=== PATIENT | female | born 1970 | race Caucasian/White ===

== ENCOUNTER 2017-06-13 13:48 | Outpatient (CLI) | payer MEDICAID, SELFPAY ==
[2017-06-13 15:24] LABS: PHA INR Fingerstick 2.5 (0.9-1.1)
== END 2017-06-13 15:47 | disposition home or self-care (01) ==
LOC: ACC 13:52
PROVIDERS: PCP Emergency Medicine; Visit Provider Emergency Medicine
DX: Z86.711 Personal history of pulmonary embolism (principal); D68.2 Hereditary deficiency of other clotting factors
CPT/HCPCS: 85610

== ENCOUNTER → 2017-07-11 11:53 | Outpatient (CLI) | payer MEDICAID, SELFPAY ==
[2017-07-11 12:16] LABS: Basophils # 0.1 K/mm3 (0-0.2); Eosinophils # 0.4 K/mm3 (0.0-0.4); Eosinophils % 5.9 % (0.1-12.0); Hematocrit 50.1 % (37.0-47.0); Hemoglobin 17.3 g/dL (12.2-16.2); Lymphocytes # 2.6 K/mm3 (0.7-4.5); Lymphocytes % 35.4 K/mm3 (10-50); Mean Corpuscular HGB Conc 34.5 g/dL (31.8-35.4); Mean Corpuscular Hemoglobin 29.1 pg (27.0-31.2); Mean Corpuscular Volume 84.4 fl (81-99); Mean Platelet Volume 7.1 fl (7.4-10.4); Monocytes # 0.4 K/mm3 (0.1-1.0); Neutrophils # 3.9 K/mm3 (1.8-7.8); Neutrophils % 52.7 % (37.0-80.0); Platelet Count 248 K/mm3 (142-424); Red Blood Count 5.94 M/mm3 (4.20-5.40); Red Cell Distribution Width 13.2 % (11.5-17.5); White Blood Count 7.4 K/mm3 (4.8-10.8)
[2017-07-11 12:31] LABS: Blood Urea Nitrogen 9 mg/dL (7-18); Carbon Dioxide 31 mmol/L (21.0-32.0); Chloride 102 mmol/L (98-107); Creatinine,Serum 0.86 mg/dL (0.55-1.02); Sodium 140 mmol/L (136-145)
[2017-07-11 12:32] LABS: Alanine Aminotransferase 32 U/L (12-78); Albumin Level 3.9 gm/dL (3.4-5.0); Alkaline Phosphatase 110 U/L (46-116); Bilirubin,Direct 0.1 mg/dL (0.0-0.2); Bilirubin,Total 0.3 mg/dL (0.2-1.0); Estimated Glomerular Filt Rate 71 ml/min (>60); GFR (African American) 86 ML/MIN (>60); Glucose 92 mg/dL (74-106); Total Protein,Serum 8.6 gm/dL (6.4-8.2)
[2017-07-11 12:33] LABS: Aspartate Amino Transferase 23 U/L (15-37)
[2017-07-12 08:24] LABS: Hep A Ab, IgM Negative (Negative); Hepatitis B Core Antibody IgM Negative (Negative); Hepatitis B Surface Antigen Negative (Negative)
[2017-07-13 06:29] LABS: HIV Screen 4th Generation wRfx Non Reactive (Non Reactive); Hepatitis C Antibody >11.0 s/co ratio (0.0-0.9)
== END ==
PROVIDERS: PCP Emergency Medicine; Visit Provider Anesthesiology
DX: F11.20 Opioid dependence, uncomplicated (principal)
CPT/HCPCS: 36415; 80048; 80074; 80076; 85025; 86703; G0432

== ENCOUNTER → 2017-08-13 14:40 | Outpatient (CLI) | payer MEDICAID, SELFPAY ==
[2017-08-13 16:29] LABS: PHA INR Fingerstick 1.9 (0.9-1.1)
== END | disposition home or self-care (01) ==
PROVIDERS: Family Provider Emergency Medicine; PCP Emergency Medicine; Visit Provider Emergency Medicine
DX: Z79.01 Long term (current) use of anticoagulants (principal); Z51.81 Encounter for therapeutic drug level monitoring
CPT/HCPCS: 85610; 99211; G0463

== ENCOUNTER → 2017-08-20 13:21 | Outpatient (CLI) | payer MEDICAID, SELFPAY | PROVIDERS: Visit Provider Emergency Medicine | DX: R53.83 Other fatigue (principal) ==

== ENCOUNTER → 2017-09-27 08:23 | Outpatient (CLI) | payer MEDICAID, SELFPAY ==
--- NOTE | 2017-09-27 08:24 | US_ITS ---
US abdomen limited: HISTORY: Right upper quadrant pain and reflux ITS.REASON: Stomach pain ORDERING PHYSICIAN: Kang Oliver MD PATIENT AGE: 46 years COMPARISON: FINDINGS: PANCREAS: Unremarkable. No obvious mass or abnormal fluid collection. No ductal dilatation LIVER: No focal liver lesions demonstrated. Homogeneous echogenicity. No intrahepatic biliary ductal dilatation evident RIGHT KIDNEY: Unremarkable. Normal size and echogenicity. No hydronephrosis GALLBLADDER: No gallstones, gallbladder wall thickening, pericholecystic fluid, or biliary dilatation. IMPRESSION: Negative gallbladder/right upper quadrant ultrasound
== END ==
PROVIDERS: Family Provider Emergency Medicine; PCP Emergency Medicine; Visit Provider Emergency Medicine
DX: R10.11 Right upper quadrant pain (principal)
CPT/HCPCS: 76705

== ENCOUNTER → 2017-11-14 15:13 | Outpatient (REF) | payer MEDICAID, SELFPAY ==
[2017-11-14 18:56] LABS: Amphetamine/Metha Screen,Urine Negative ng/mL (<1000); Barbiturates Screen,Urine Negative ng/mL (<200); Benzodiazepines Screen,Urine Negative ng/mL (200); Cannabinoid Screen,Urine Negative ng/mL (<50); Cocaine Screen,Urine Negative ng/g (<300); Methadone Screen,Urine Negative ng/mL (<300); Opiate Screen,Urine Negative ng/mL (<300); Phencyclidine Screen,Urine Negative ng/mL (<25)
== END ==
LOC: LAB 15:13
PROVIDERS: Visit Provider Emergency Medicine
DX: Z79.899 Other long term (current) drug therapy (principal)
CPT/HCPCS: 80305

== ENCOUNTER → 2017-11-26 17:32 | Outpatient (CLI) | payer MEDICAID, SELFPAY ==
[2017-11-26 18:03] LABS: Basophils # 0.1 K/mm3 (0-0.2); Eosinophils # 0.3 K/mm3 (0.0-0.4); Eosinophils % 4.3 % (0.1-12.0); Hematocrit 51.6 % (37.0-47.0); Hemoglobin 16.7 g/dL (12.2-16.2); Lymphocytes # 2.8 K/mm3 (0.7-4.5); Lymphocytes % 35.3 K/mm3 (10-50); Mean Corpuscular HGB Conc 32.5 g/dL (31.8-35.4); Mean Corpuscular Hemoglobin 28.5 pg (27.0-31.2); Mean Corpuscular Volume 87.7 fl (81-99); Mean Platelet Volume 7.2 fl (7.4-10.4); Monocytes # 0.4 K/mm3 (0.1-1.0); Monocytes % 4.7 % (1.7-9.3); Neutrophils # 4.3 K/mm3 (1.8-7.8); Neutrophils % 54.8 % (37.0-80.0); Platelet Count 260 K/mm3 (142-424); Red Blood Count 5.88 M/mm3 (4.20-5.40); Red Cell Distribution Width 13.4 % (11.5-17.5); White Blood Count 7.9 K/mm3 (4.8-10.8)
[2017-11-26 18:48] LABS: Alanine Aminotransferase 26 U/L (12-78); Albumin Level 4.1 gm/dL (3.4-5.0); Alkaline Phosphatase 89 U/L (46-116); Aspartate Amino Transferase 22 U/L (15-37); Bilirubin,Direct 0.1 mg/dL (0.0-0.2); Bilirubin,Indirect 0.1 mg/dL (0.0-0.9); Bilirubin,Total 0.2 mg/dL (0.2-1.0); Blood Urea Nitrogen 17 mg/dL (7-18); Calcium 9.2 mg/dL (8.5-10.1); Carbon Dioxide 28 mmol/L (21.0-32.0); Chloride 106 mmol/L (98-107); Creatinine,Serum 1.03 mg/dL (0.55-1.02); Estimated Glomerular Filt Rate 57 ml/min (>60); GFR (African American) 69 ML/MIN (>60); Glucose 108 mg/dL (74-106); Sodium 142 mmol/L (136-145); Total Protein,Serum 7.7 gm/dL (6.4-8.2)
[2017-11-28 09:20] LABS: Hep A Ab, IgM Negative (Negative); Hepatitis B Core Antibody IgM Negative (Negative); Hepatitis B Surface Antigen Negative (Negative)
[2017-11-29 06:03] LABS: HIV Screen 4th Generation wRfx Non Reactive (Non Reactive); Hepatitis C Antibody >11.0 s/co ratio (0.0-0.9)
== END ==
PROVIDERS: Visit Provider Anesthesiology
DX: F11.20 Opioid dependence, uncomplicated (principal)
CPT/HCPCS: 36415; 80048; 80074; 80076; 85025; 86703; G0432

== ENCOUNTER 2017-12-11 13:43 | Outpatient (CLI) | payer MEDICAID, SELFPAY ==
[2017-12-11 16:25] LABS: PHA INR Fingerstick 2.4 (0.9-1.1)
== END 2017-12-11 16:27 | disposition home or self-care (01) ==
LOC: ACC 13:44
PROVIDERS: PCP Emergency Medicine; Visit Provider Emergency Medicine
DX: Z79.01 Long term (current) use of anticoagulants (principal); Z86.718 Personal history of other venous thrombosis and embolism; Z51.81 Encounter for therapeutic drug level monitoring
CPT/HCPCS: 85610; 99211; G0463

== ENCOUNTER 2018-03-13 14:39 | Outpatient (CLI) | payer MEDICAID, SELFPAY | END 2018-03-13 15:11 | disposition home or self-care (01) | LOC: ACC 14:40 | PROVIDERS: PCP Emergency Medicine; Visit Provider Surgery | DX: K21.9 Gastro-esophageal reflux disease without esophagitis (principal); R10.9 Unspecified abdominal pain; Z86.718 Personal history of other venous thrombosis and embolism | CPT/HCPCS: 85610; 99211; G0463 ==

== ENCOUNTER 2018-03-22 08:56 | Outpatient (CLI) | payer MEDICAID, SELFPAY ==
[2018-03-22 15:55] LABS: PHA INR Fingerstick 2.9 (0.9-1.1)
== END 2018-03-22 15:56 | disposition home or self-care (01) ==
LOC: ACC 08:57
PROVIDERS: PCP Emergency Medicine; Visit Provider Emergency Medicine
DX: Z51.81 Encounter for therapeutic drug level monitoring (principal); Z79.01 Long term (current) use of anticoagulants
CPT/HCPCS: 85610; 99211; G0463

== ENCOUNTER 2018-05-28 15:50 | Outpatient (CLI) | payer MEDICAID, SELFPAY ==
[2018-05-28 16:26] LABS: PHA INR Fingerstick 2.6 (0.9-1.1)
== END 2018-05-28 16:32 | disposition home or self-care (01) ==
LOC: ACC 15:52
PROVIDERS: PCP Emergency Medicine; Visit Provider Emergency Medicine
DX: Z51.81 Encounter for therapeutic drug level monitoring (principal); Z79.01 Long term (current) use of anticoagulants
CPT/HCPCS: 85610; 99211; G0463

== ENCOUNTER 2018-08-21 14:44 | Outpatient (CLI) | payer MEDICAID, SELFPAY ==
[2018-08-21 15:37] LABS: PHA INR Fingerstick 2.6 (0.9-1.1)
== END 2018-08-21 15:50 | disposition home or self-care (01) ==
LOC: ACC 14:45
PROVIDERS: PCP Emergency Medicine; Visit Provider Emergency Medicine
DX: Z51.81 Encounter for therapeutic drug level monitoring (principal); Z79.01 Long term (current) use of anticoagulants; Z86.718 Personal history of other venous thrombosis and embolism
CPT/HCPCS: 85610; 99211; G0463

== ENCOUNTER 2018-09-19 22:49 | Emergency (ER) | payer MEDICAID, SELFPAY ==
[2018-09-19 22:51] VITALS: BP 101/45; PULSE 75; RESP 17; TEMP 37.1; O2SAT 98; BMI 24.9
[2018-09-20 00:12] LABS: Basophils # 0.1 K/mm3 (0-0.2); Basophils % 0.5 % (0.1-2.0); Eosinophils # 0.1 K/mm3 (0.0-0.4); Eosinophils % 1.4 % (0.1-12.0); Hematocrit 45.7 % (37.0-47.0); Hemoglobin 15.4 g/dL (12.2-16.2); Lymphocytes % 33.1 % (10-50); Mean Corpuscular HGB Conc 33.8 g/dL (31.8-35.4); Mean Corpuscular Hemoglobin 28.3 pg (27.0-31.2); Mean Corpuscular Volume 83.8 fl (81-99); Mean Platelet Volume 7.5 fl (7.4-10.4); Monocytes # 0.5 K/mm3 (0.1-1.0); Monocytes % 5.4 % (1.7-9.3); Neutrophils # 5.3 K/mm3 (1.8-7.8); Neutrophils % 59.6 % (37.0-80.0); Platelet Count 218 K/mm3 (142-424); Red Blood Count 5.45 M/mm3 (4.20-5.40); Red Cell Distribution Width 13.9 % (11.5-17.5); White Blood Count 8.9 K/mm3 (4.8-10.8)
[2018-09-20 00:23] LABS: Anion Gap 13.5 mEq/L (5-15); Blood Urea Nitrogen 16 mg/dL (7-18); Carbon Dioxide 27 mmol/L (21.0-32.0); Chloride 103 mmol/L (98-107); Creatinine Clearance Estimated 78 mL/min (50-200); Creatinine,Serum 1.21 mg/dL (0.55-1.02); Estimated Glomerular Filt Rate 48 ml/min (>60); GFR (African American) 58 ML/MIN (>60); Glucose 95 mg/dL (74-106); Potassium 3.5 mmoL/L (3.5-5.1); Sodium 140 mmol/L (136-145); Troponin I < 0.02 ng/ml (0.00-0.06)
--- NOTE | 2018-09-20 00:23 | HMH.EDCP ---
ED Disposition Clinical Impression: Atypical chest pain Disposition: Home, Self-Care Condition on Discharge: Good Instructions: DI for Atypical Chest Pain Additional Instructions: fluids and see pcp for follow up Referrals: Kang Oliver MD [Primary Care Provider] - - Critical Care Critical Care Time: No Attestation: On 09/19/18, the high probability of a clinically significant, sudden or life threatening deterioration of the following system(s) required my full and direct attention, intervention and personal management. The time I documented below is in addition to time spent performing reported procedures but includes the following listed in this critical care notation. Medical Decision Making - Medical Records Medical records reviewed: Yes: I reviewed the patient's medical records. - Fermín Inquiry Pt receiving controlled substance: No Vital Signs: 09/19/18 22:51 Temperature 98.8 F Temperature Source Oral Pulse Rate [Right] 75 Respiratory Rate 17 Blood Pressure [Left Arm] 101/45 L Blood Pressure Mean [Left Arm] 63 Blood Pressure Source [Left Arm] Automatic Cuff Blood Pressure Position [Left Arm] Sitting 02 Sat by Pulse Oximetry 98 - Lab Data Lab results reviewed: Yes: I reviewed the patient's lab results. Lab Results 09/20/18 00:00: WBC 8.9, RBC 5.45 H, Hgb 15.4, Hct 45.7, MCV 83.8, MCH 28.3, MCHC 33.8, RDW 13.9, Plt Count 218, MPV 7.5, Neut % (Auto) 59.6, Lymph % (Auto) 33.1, [place] % (Auto) 5.4, Eos % (Auto) 1.4, Baso % (Auto) 0.5, Neut # (Auto) 5.3, Lymph # (Auto) 3.0, [place] # (Auto) 0.5, Eos # (Auto) 0.1, Baso # (Auto) 0.1 09/20/18 00:00: Sodium 140, Potassium 3.5, Chloride 103, Carbon Dioxide 27, Anion Gap 13.5, BUN 16, Creatinine 1.21 H, Estimated Creat Clear 78, Estimated GFR 48 L, Est GFR ( Amer) 58 L, Glucose 95, Calcium 9.0, Troponin I < 0.02 Result diagrams: 09/20/18 00:00 09/20/18 00:00 - ECG Data Tracing #1 Normal Sinus Rhythm: Yes Ischemic changes: non-specific ST-T wave changes Chest Pain HPI - General Chief Complaint: Chest Pain Stated Complaint: Chest pain radiates to left arm Time Seen by Provider: 09/19/18 23:00 Mode of Arrival: Ambulatory Source of Information: Patient, Medical Record Limitations: No Limitations Description of Symptoms (Recalled from ER Triage Doc. by RN): Chest pain radiating into left shoulder. - History of Present Illness HPI narrative: pt with occ ant chest pain with no fever or trauma and no cough MD complaint: chest pain Onset (ago): day(s) Duration: now resolved Activity at onset: during rest Pain location: left chest Severity: moderate Quality: sharp Risk Factors for CAD: Smoking Treatments prior to or on arrival for Cardiac Chest Pain: none - KYLEE Score for Non-Stemi Age of Patient: 40-49 years old Heart Rate: 70-89 bpm Systolic Blood Pressure: 100-119 mmHg Serum Creatinine: 1.20-1.59 mg/dl CHF [place] Class: I-No CHF Other Risk Factors: None Non-Stemi Risk Score: 87 - Related Data On Oral Contraceptives: No Home Medications Medication Instructions Recorded Confirmed Umeclidinium Brm/Vilanterol Tr 62.5 mcg INHALATION Q24H 07/21/18 09/20/18 [Anoro Ellipta] Umeclidinium [place] [Incruse 62.5 mcg INHALATION Q24H 08/22/18 09/20/18 Ellipta] Albuterol Sulfate [Proventil HFA] 90 mcg INHALATION Q8H PRN 09/19/18 09/19/18 Suboxone 8 mg-2 mg Sl Film 8 mg PO BID 09/19/18 09/19/18 Fluticasone Propionate [Flonase 50 mcg INTRANASAL DAILY 09/20/18 09/20/18 Allergy Relief NS] Fluticasone/Vilanterol [Breo 25 mcg INHALATION DAILY 09/20/18 09/20/18 Ellipta 200-25 Mcg INH] Previous Rx's Medication Instructions Recorded tizanidine 4 mg tablet 4 mg PO TID PRN #90 tab 07/31/18 pantoprazole 40 mg tablet,delayed 40 mg PO DAILY #90 tab 08/26/18 release ranitidine 150 mg tablet 150 mg PO BID #180 tab 08/26/18 warfarin 5 mg tablet 5 mg PO DAILY #90 tab 08/26/18 gabapentin 800 mg tablet 800 mg PO QID #120 tab
--- NOTE | 2018-09-20 00:35 | ED_ITS ---
ED Disposition Clinical Impression: Atypical chest pain Disposition: Home, Self-Care Condition on Discharge: Good Instructions: DI for Atypical Chest Pain Additional Instructions: fluids and see pcp for follow up Referrals: Kang Oliver MD [Primary Care Provider] - - Critical Care Critical Care Time: No Attestation: On 09/19/18, the high probability of a clinically significant, sudden or life threatening deterioration of the following system(s) required my full and direct attention, intervention and personal management. The time I documented below is in addition to time spent performing reported procedures but includes the following listed in this critical care notation. Medical Decision Making - Medical Records Medical records reviewed: Yes: I reviewed the patient's medical records. - Fermín Inquiry Pt receiving controlled substance: No Vital Signs: 09/19/18 22:51 Temperature 98.8 F Temperature Source Oral Pulse Rate [Right] 75 Respiratory Rate 17 Blood Pressure [Left Arm] 101/45 L Blood Pressure Mean [Left Arm] 63 Blood Pressure Source [Left Arm] Automatic Cuff Blood Pressure Position [Left Arm] Sitting 02 Sat by Pulse Oximetry 98 - Lab Data Lab results reviewed: Yes: I reviewed the patient's lab results. Lab Results 09/20/18 00:00: WBC 8.9, RBC 5.45 H, Hgb 15.4, Hct 45.7, MCV 83.8, MCH 28.3, MCHC 33.8, RDW 13.9, Plt Count 218, MPV 7.5, Neut % (Auto) 59.6, Lymph % (Auto) 33.1, [place] % (Auto) 5.4, Eos % (Auto) 1.4, Baso % (Auto) 0.5, Neut # (Auto) 5.3, Lymph # (Auto) 3.0, [place] # (Auto) 0.5, Eos # (Auto) 0.1, Baso # (Auto) 0.1 09/20/18 00:00: Sodium 140, Potassium 3.5, Chloride 103, Carbon Dioxide 27, Anion Gap 13.5, BUN 16, Creatinine 1.21 H, Estimated Creat Clear 78, Estimated GFR 48 L, Est GFR ( Amer) 58 L, Glucose 95, Calcium 9.0, Troponin I < 0.02 Result diagrams: 09/20/18 00:00 09/20/18 00:00 - ECG Data Tracing #1 Normal Sinus Rhythm: Yes Ischemic changes: non-specific ST-T wave changes Chest Pain HPI - General Chief Complaint: Chest Pain Stated Complaint: Chest pain radiates to left arm Time Seen by Provider: 09/19/18 23:00 Mode of Arrival: Ambulatory Source of Information: Patient, Medical Record Limitations: No Limitations Description of Symptoms (Recalled from ER Triage Doc. by RN): Chest pain radiating into left shoulder. - History of Present Illness HPI narrative: pt with occ ant chest pain with no fever or trauma and no cough MD complaint: chest pain Onset (ago): day(s) Duration: now resolved Activity at onset: during rest Pain location: left chest Severity: moderate Quality: sharp Risk Factors for CAD: Smoking Treatments prior to or on arrival for Cardiac Chest Pain: none - KYLEE Score for Non-Stemi Age of Patient: 40-49 years old Heart Rate: 70-89 bpm Systolic Blood Pressure: 100-119 mmHg Serum Creatinine: 1.20-1.59 mg/dl CHF [place] Class: I-No CHF Other Risk Factors: None Non-Stemi Risk Score: 87 - Related Data On Oral Contraceptives: No Home Medications Medication Instructions Recorded Confirmed Umeclidinium Brm/Vilanterol Tr 62.5 mcg INHALATION Q24H 07/21/18 09/20/18 [Anoro Ellipta] Umeclidinium [place] [Incrus
[2018-09-20 00:58] VITALS: BP 131/93; PULSE 74; RESP 16; TEMP 36.6; O2SAT 98
== END 2018-09-20 00:57 | disposition home or self-care (01) ==
PROVIDERS: Emergency Provider Emergency Medicine; PCP Emergency Medicine
DX: R07.89 Other chest pain (principal); F41.8 Other specified anxiety disorders; K21.9 Gastro-esophageal reflux disease without esophagitis; F17.210 Nicotine dependence, cigarettes, uncomplicated; Z88.0 Allergy status to penicillin; Z88.6 Allergy status to analgesic agent
CPT/HCPCS: 80048; 84484; 85025; 93005; 99282

== ENCOUNTER 2018-09-25 15:07 | Outpatient (CLI) | payer MEDICAID, SELFPAY ==
--- NOTE | 2018-09-25 15:08 | NVE_ITS ---
Cerebrovascular Exam Indications: 729.5 Pain in limb. IMPRESSIONS 1. There is no evidence of significant Reflux. 2. No evidence of acute deep or superficial vein thrombosis involving the left lower extremity History: PMH: Deep vein thrombosis. Risk factors: Current tobacco use. Medications: Warfarin (Coumadin). Limited carotid duplex study. Doppler flow study including spectral analysis, color and coleman scale imaging. Location: Vascular laboratory. Patient status: Outpatient. Tables: Venous flow and imaging: + +-------+ + Location Overall Flow properties + +-------+ + Left common femoral Patent Normal phasicity; spontaneous; normal augmentation; compressible + +-------+ + Left saphenofemoral junction Patent Compressible + +-------+ + Left profunda femoral Patent Compressible + +-------+ + Left femoral Patent Normal phasicity; spontaneous; normal augmentation; compressible + +-------+ + Left greater saphenous Patent Normal phasicity; spontaneous; normal augmentation; compressible + +-------+ + Left popliteal Patent Normal phasicity; spontaneous; normal augmentation; compressible + +-------+ + Left posterior tibial Patent Compressible + +-------+ + Left peroneal Patent Compressible + +-------+ + Left gastrocnemius Patent Compressible + +-------+ + Left soleal Patent Compressible + +-------+ + (Report amended ) Electronically signed by: Balta Chapin [id number]
[2018-09-25 16:09] LABS: PHA INR Fingerstick 2.4 (0.9-1.1)
== END 2018-09-25 16:11 | disposition home or self-care (01) ==
PROVIDERS: PCP Nurse Practitioner Family; Visit Provider Nurse Practitioner Family
DX: R60.9 Edema, unspecified (principal); Z51.81 Encounter for therapeutic drug level monitoring; Z79.01 Long term (current) use of anticoagulants
CPT/HCPCS: 85610; 93971; 99211; G0463

== ENCOUNTER → 2018-10-04 14:22 | Outpatient (CLI) | payer MEDICAID, SELFPAY ==
--- NOTE | 2018-10-04 14:24 | CT_ITS ---
CT abdomen pelvis wo con CLINICAL INDICATION: Right flank pain with hematuria ITS.REASON: blood in urine ORDERING PHYSICIAN: Donya Mendoza APRN PATIENT AGE: 47 years COMPARISON: 07/28/2018 TECHNIQUE: Axial images obtained with sagittal and coronal reformats. All CT scans at the facility use one or more dose reduction, viz: automated exposure control, ma/kV adjustment per patient size (including targeted exams where dose is matched to indication, i.e. head), or iterative reconstruction technique. PROCEDURE: Oral Contrast: None IV Contrast: None . FINDINGS: There are fibrotic changes in the lung bases. There is diffuse fatty infiltration of the liver with some sparing of fatty infiltration within the left hepatic lobe posteriorly in the caudate area. The spleen, adrenal glands, pancreas, gallbladder, and kidneys have an unremarkable appearance. No renal or ureteral calculi. No process. No intestinal obstruction or free air. Bowel gas pattern is nonspecific with some fluid-filled small bowel which are nondistended. Prior hysterectomy. No pelvic mass abnormal fluid collection or focal inflammatory changes pelvis. The urinary bladder has an unremarkable appearance No acute bony anomalies. IMPRESSION: 1. No acute abdominal or pelvic findings. 2. No renal or ureteral calculi. 3. Diffuse fatty infiltration of liver with sparing of the posterior aspect of the left hepatic lobe and caudate lobe
== END ==
PROVIDERS: PCP Emergency Medicine; Visit Provider Nurse Practitioner Family
DX: R31.9 Hematuria, unspecified (principal)
CPT/HCPCS: 74176

== ENCOUNTER 2018-10-15 15:11 | Outpatient (CLI) | payer MEDICAID, SELFPAY ==
[2018-10-15 15:59] LABS: PHA INR Fingerstick 2.9 (0.9-1.1)
== END 2018-10-15 16:01 | disposition home or self-care (01) ==
LOC: ACC 15:15
PROVIDERS: PCP Emergency Medicine; Visit Provider Emergency Medicine
DX: Z51.81 Encounter for therapeutic drug level monitoring (principal); Z79.01 Long term (current) use of anticoagulants; Z86.718 Personal history of other venous thrombosis and embolism
CPT/HCPCS: 85610; 99211; G0463

== ENCOUNTER 2018-11-15 13:47 | Outpatient (CLI) | payer MEDICAID, SELFPAY ==
[2018-11-15 15:17] LABS: PHA INR Fingerstick 2.1 (0.9-1.1)
== END 2018-11-15 16:07 | disposition home or self-care (01) ==
LOC: ACC 13:49
PROVIDERS: PCP Emergency Medicine; Visit Provider Emergency Medicine
DX: Z51.81 Encounter for therapeutic drug level monitoring (principal); Z79.01 Long term (current) use of anticoagulants; Z86.718 Personal history of other venous thrombosis and embolism
CPT/HCPCS: 85610; 99211; G0463

== ENCOUNTER → 2018-12-11 18:00 | Outpatient (CLI) | payer MEDICAID, SELFPAY ==
[2018-12-11 19:17] LABS: Amphetamine/Metha Screen,Urine Negative ng/mL (<1000); Barbiturates Screen,Urine Negative ng/mL (<200); Benzodiazepines Screen,Urine Negative ng/mL (<200); Cannabinoid Screen,Urine Positive ng/mL (<50); Cocaine Screen,Urine Negative ng/mL (<300); Methadone Screen,Urine Negative ng/mL (<300); Opiate Screen,Urine Negative ng/mL (<300); Phencyclidine Screen,Urine Negative ng/mL (<25)
== END ==
PROVIDERS: Visit Provider Emergency Medicine
DX: Z79.899 Other long term (current) drug therapy (principal); R74.8 Abnormal levels of other serum enzymes
CPT/HCPCS: 80305; 87086; 87088; 87186

== ENCOUNTER 2018-12-26 09:44 | Outpatient (CLI) | payer MEDICAID, SELFPAY ==
[2018-12-26 11:29] LABS: PHA INR Fingerstick 1.7 (0.9-1.1)
== END 2018-12-26 11:38 | disposition home or self-care (01) ==
LOC: ACC 09:45
PROVIDERS: PCP Emergency Medicine; Visit Provider Emergency Medicine
DX: Z51.81 Encounter for therapeutic drug level monitoring (principal); Z79.01 Long term (current) use of anticoagulants
CPT/HCPCS: 85610; 99211; G0463

== ENCOUNTER → 2019-01-08 18:31 | Outpatient (CLI) | payer MEDICAID, SELFPAY ==
[2019-01-08 22:15] LABS: Amphetamine/Metha Screen,Urine Negative ng/mL (<1000); Barbiturates Screen,Urine Negative ng/mL (<200); Benzodiazepines Screen,Urine Negative ng/mL (<200); Cannabinoid Screen,Urine Positive ng/mL (<50); Cocaine Screen,Urine Negative ng/mL (<300); Methadone Screen,Urine Negative ng/mL (<300); Opiate Screen,Urine Negative ng/mL (<300); Phencyclidine Screen,Urine Negative ng/mL (<25)
== END ==
PROVIDERS: Visit Provider Emergency Medicine
DX: G62.9 Polyneuropathy, unspecified (principal)
CPT/HCPCS: 80305

== ENCOUNTER 2019-01-09 12:24 | Outpatient (CLI) | payer MEDICAID, SELFPAY ==
[2019-01-09 14:14] LABS: PHA INR Fingerstick 1.8 (0.9-1.1)
== END 2019-01-09 14:16 | disposition home or self-care (01) ==
LOC: ACC 12:25
PROVIDERS: PCP Emergency Medicine; Visit Provider Emergency Medicine
DX: Z51.81 Encounter for therapeutic drug level monitoring (principal); Z79.01 Long term (current) use of anticoagulants; Z86.718 Personal history of other venous thrombosis and embolism
CPT/HCPCS: 85610; 99211; G0463

== ENCOUNTER 2019-02-24 16:01 | Outpatient (CLI) | payer MEDICAID, SELFPAY ==
[2019-02-24 16:31] LABS: PHA INR Fingerstick 2.1 (0.9-1.1)
--- NOTE | 2019-03-06 13:52 | HMH.PHAINT ---
ACC-03/06/19--PATIENT CALLED AND INDICATED SHE DID NOT GO TO HER COLONOSCOPY APPT YESTERDAY BECAUSE HER RIDE FELL THROUGH. SHE INDICATED SHE DID NOT TAKE WARFARIN OR LOVENOX YESTERDAY. SHE INDICATED SHE HAD TAKEN ONE DOSE OF WARFARIN TODAY BECAUSE SHE WAS AFRAID SHE WOULD HAVE A CLOT. I CALLED DR. GILBERT'S OFFICE AND SPOKE WITH SUSIE ABOUT ORDERING ADDITIONAL LOVENOX TO BRIDGE HER UNTIL THE RESCHEDULED COLONOSCOPY ON 03/10/19.
== END 2019-02-24 16:33 | disposition home or self-care (01) ==
LOC: ACC 16:02
PROVIDERS: PCP Emergency Medicine; Visit Provider Emergency Medicine
DX: Z51.81 Encounter for therapeutic drug level monitoring (principal); Z79.01 Long term (current) use of anticoagulants
CPT/HCPCS: 85610; 99211; G0463

== ENCOUNTER → 2019-04-08 16:53 | Outpatient (CLI) | payer OTHER, SELFPAY ==
[2019-04-08 17:59] LABS: Amphetamine/Metha Screen,Urine Negative ng/mL (<1000); Barbiturates Screen,Urine Negative ng/mL (<200); Benzodiazepines Screen,Urine Negative ng/mL (<200); Cannabinoid Screen,Urine Negative ng/mL (<50); Cocaine Screen,Urine Negative ng/mL (<300); Methadone Screen,Urine Negative ng/mL (<300); Opiate Screen,Urine Negative ng/mL (<300); Phencyclidine Screen,Urine Negative ng/mL (<25)
== END ==
PROVIDERS: Visit Provider Emergency Medicine
DX: Z79.899 Other long term (current) drug therapy (principal)
CPT/HCPCS: 80305

== ENCOUNTER 2019-04-21 14:36 | Outpatient (CLI) | payer OTHER, SELFPAY ==
[2019-04-21 15:23] LABS: PHA INR Fingerstick 3.1 (0.9-1.1)
== END 2019-04-21 15:43 | disposition home or self-care (01) ==
LOC: ACC 14:37
PROVIDERS: PCP Emergency Medicine; Visit Provider Emergency Medicine
DX: Z51.81 Encounter for therapeutic drug level monitoring (principal); Z79.01 Long term (current) use of anticoagulants
CPT/HCPCS: 85610; 99211; G0463

== ENCOUNTER 2019-05-01 15:39 | Outpatient (CLI) | payer OTHER, SELFPAY ==
[2019-05-01 16:21] LABS: PHA INR Fingerstick 2.3 (0.9-1.1)
== END 2019-05-01 16:25 | disposition home or self-care (01) ==
PROVIDERS: PCP Emergency Medicine; Visit Provider Emergency Medicine
DX: Z51.81 Encounter for therapeutic drug level monitoring (principal); Z79.01 Long term (current) use of anticoagulants
CPT/HCPCS: 85610; 99211; G0463

== ENCOUNTER → 2019-05-06 08:52 | Outpatient (CLI) | payer OTHER, SELFPAY ==
--- NOTE | 2019-05-06 08:53 | FL_ITS ---
PROCEDURE: FL UPPER GI SMALL BOWEL CLINICAL INDICATION: dysphagia and abdominal pain COMPARISON: FL BARIUM SWALLOW from 05/06/2019 TECHNIQUE: FLUOROSCOPY TIME : 1 minutes and 46 seconds FINDINGS: Examination of the esophagus is unremarkable. No filling defects, constricting lesions, or mucosal abnormalities are evident. The stomach and duodenum have an unremarkable appearance. No mass or ulcer evident. Small bowel is unremarkable with normal mucosal pattern. No obstructive lesions or dilatation. Spot views of the terminal ileum are unremarkable. IMPRESSION: Unremarkable barium swallow, upper GI, and small-bowel follow-through Dictated by: Balta Chapin MD 05/06/2019 12:28 Electronically signed by Balta Chapin MD in [place] 05/06/2019 12:28
== END ==
PROVIDERS: PCP Emergency Medicine; Visit Provider Surgery
DX: R13.10 Dysphagia, unspecified (principal)
CPT/HCPCS: 74220; 74245

== ENCOUNTER 2019-05-15 09:49 | Outpatient (CLI) | payer OTHER, SELFPAY ==
--- NOTE | 2019-05-15 10:22 | XR_ITS ---
PROCEDURE: XR KNEE LT 4V CLINICAL INDICATION: left knee sprain/ pain COMPARISON: XR KNEE LT 3V from 04/11/2019 FINDINGS: No fracture or dislocation. No lytic or blastic change. There is normal mineralization. The joint spaces are well-preserved. No significant degenerative/arthritic changes. No erosive changes evident. Other findings:There are stable linear sclerotic lines related to the medullary portion of the distal shaft and metaphysis of the femur. These could be related to chronic occult injuries or metabolic. IMPRESSION: No acute process and no significant change. Dictated by: Enoc Grullon 05/15/2019 10:51 Electronically signed by Enoc Grullon in [place] 05/15/2019 10:51
--- NOTE | 2019-05-15 10:22 | XR_ITS ---
PROCEDURE: XR ANKLE LT MIN 3V CLINICAL INDICATION: pain COMPARISON: No exams were available for comparison FINDINGS: Bone density is normal. There is orthopedic hardware with fixation screws and compression plates involving distal tibia and fibula. There are small rounded lucent foci involving the distal metaphysis of the tibia with adjacent sclerosis likely related to prior orthopedic hardware. There is no acute fracture. There is some flattening of the dome of the talus and there narrowing of the tibiotalar joint with anterior spur. IMPRESSION: Postoperative findings as described. Tibiotalar joint arthritis. Dictated by: Enoc Grullon 05/15/2019 10:48 Electronically signed by Enoc Grullon in [place] 05/15/2019 10:48
[2019-05-15 12:13] LABS: PHA INR Fingerstick 2.1 (0.9-1.1)
== END 2019-05-15 12:25 | disposition home or self-care (01) ==
PROVIDERS: PCP Emergency Medicine; Referring Provider Orthopaedic Surgery; Visit Provider Emergency Medicine
DX: M79.605 Pain in left leg (principal); M25.562 Pain in left knee; Z51.81 Encounter for therapeutic drug level monitoring; Z79.01 Long term (current) use of anticoagulants
CPT/HCPCS: 73564; 73610; 85610; 99211; G0463

== ENCOUNTER 2019-05-15 11:07 | Emergency (ER) | payer OTHER, SELFPAY ==
--- NOTE | 2019-05-15 11:07 | ECG_ITS ---
APPROVED REPORT Exam: Resting ECG HR:69 bpm ECG Measurements Heart Rate 69 AXES NC 108 P 66 QRSd 82 QRS 48 QT 382 T 52 QTc 409 <Conclusion> Sinus rhythm with short NC Otherwise normal ECG Electronically signed by : Isac Pate, 05/18/2019 14:32:45
[2019-05-15 11:09] VITALS: BP 130/81; PULSE 75; RESP 18; TEMP 36.7; O2SAT 97; BMI 24.5
--- NOTE | 2019-05-15 11:19 | XR_ITS ---
PROCEDURE: XR CHEST 2V CLINICAL HISTORY: CP COMPARISON: CTAC CTA-CHEST from 08/06/2013 CXR2V XR chest 2V from 08/22/2018 XR CHEST 2V from 01/29/2019 XR CHEST 2V from 04/16/2019 FINDINGS: The cardiomediastinal silhouette and pulmonary vascularity are within normal limits. There are a few hazy strands of increased density along the lateral right lung base just above the right lateral costophrenic angle. This was also present on the 08/22/2018 exam. There are some punctate stable benign calcified granulomas in the lung salas bilaterally. No acute bony abnormalities. IMPRESSION: Lateral right lung base scarring and perhaps some mild pleural thickening. No significant change or acute process. Dictated by: Enoc Grullon 05/15/2019 12:35 Electronically signed by Enoc Grullon in [place] 05/15/2019 12:35
[2019-05-15 11:25] LABS: Basophils # 0.1 K/mm3 (0-0.2); Basophils % 0.9 % (0.1-2.0); Eosinophils # 0.1 K/mm3 (0.0-0.4); Eosinophils % 2.4 % (0.1-12.0); Hematocrit 46.6 % (37.0-47.0); Lymphocytes # 2.3 K/mm3 (0.7-4.5); Lymphocytes % 38.1 % (10-50); Mean Corpuscular HGB Conc 34.2 g/dL (31.8-35.4); Mean Corpuscular Hemoglobin 29.7 pg (27.0-31.2); Mean Corpuscular Volume 86.8 fl (81-99); Mean Platelet Volume 7.4 fl (7.4-10.4); Monocytes # 0.3 K/mm3 (0.1-1.0); Monocytes % 4.9 % (1.7-9.3); Neutrophils # 3.2 K/mm3 (1.8-7.8); Neutrophils % 53.7 % (37.0-80.0); Platelet Count 226 K/mm3 (142-424); Red Blood Count 5.37 M/mm3 (4.20-5.40); White Blood Count 5.9 K/mm3 (4.8-10.8)
[2019-05-15 11:29] LABS: Microscopic, Urine URINE MICROSCOPIC (MICROSCOPIC)
[2019-05-15 11:33] LABS: Appearance,Urine CLEAR (Clear); Bilirubin,Urine Negative (Negative); Blood, Urine 1+ (Negative); Color,Urine YELLOW (Yellow); Glucose,Urine (UA) Negative (Negative); Ketones,Urine Negative (Negative); Leukocyte Esterase,Urine 2+ (Negative); Nitrate,Urine Negative (Negative); Protein,Urine Negative (Negative); Specific Gravity, Urine >= 1.030 (1.005-1.030); Urobilinogen,Urine 0.2 EU/dl (0.2)
--- NOTE | 2019-05-15 11:35 | PC.NURSE ---
pt to xray
[2019-05-15 11:50] LABS: Anion Gap 15.3 mEq/L (5-15); Blood Urea Nitrogen 18 mg/dL (7-18); Carbon Dioxide 28 mmol/L (21.0-32.0); Chloride 104 mmol/L (98-107); Creatinine Clearance Estimated 95 mL/min (50-200); Creatinine,Serum 0.96 mg/dL (0.55-1.02); Estimated Glomerular Filt Rate 62 ml/min (>60); GFR (African American) 75 ML/MIN (>60); Glucose 93 mg/dL (74-106); Potassium 4.3 mmoL/L (3.5-5.1); Sodium 143 mmol/L (136-145); Troponin I < 0.02 ng/ml (0.00-0.06)
[2019-05-15 11:51] LABS: Bacteria,Urine 2+ /lpf
[2019-05-15 11:55] VITALS: BP 0/0; PULSE 0; RESP 0; TEMP -17.7; TEMP 0; O2SAT 0
--- NOTE | 2019-05-15 11:55 | PC.NURSE ---
PT SIGNED OUT AMA AFTER CUSSING NURSE AND STATING THAT SHE DID NOT WANT TO WAIT ANY LONGER FOR TEST RESULTS OR FURTHER EVAL AND SHE STATED THAT SHE WANTED TO SMOKE A CIGARETTE.
== END 2019-05-15 11:55 | disposition left against medical advice (07) ==
PROVIDERS: Emergency Provider Emergency Medicine
DX: Z53.21 Procedure and treatment not carried out due to patient leaving prior to being seen by health care provider (principal)
CPT/HCPCS: 71046; 80048; 81001; 84484; 85025; 87086; 87088; 93005; 99283

== ENCOUNTER → 2019-05-16 15:54 | Outpatient (CLI) | payer OTHER, SELFPAY ==
--- NOTE | 2019-05-16 15:54 | MM_ITS ---
PROCEDURE: MM DIG SCREENING MAMM BI W/CAD CLINICAL INDICATION: screening There is a history of breast cancer patient's mother. COMPARISON: None, this is baseline screening exam TECHNIQUE: Standard CC and MLO images were obtained. R2 CAD reviewed. FINDINGS: Scattered fibroglandular densities are seen in the central portions of both breast. The findings are fairly symmetrical bilaterally. There is no suspicious lesion in either breast and no suspicious microcalcifications. IMPRESSION: Fibrofatty parenchyma with no suspicious lesions seen BI-RAD Category: 1 Negative FOLLOW-UP: 1YR 1 Year Follow-up (A letter has been sent to the patient regarding results of the study.) Dictated by: Dr. Ray Jackman MD 05/21/2019 14:[address] Ray Jackman MD in [place] 05/21/2019 14:35
== END ==
PROVIDERS: PCP Emergency Medicine; Visit Provider Emergency Medicine
DX: Z12.31 Encounter for screening mammogram for malignant neoplasm of breast (principal)
CPT/HCPCS: 77067

== ENCOUNTER → 2019-05-20 14:54 | Outpatient (CLI) | payer OTHER, SELFPAY ==
[2019-05-20 14:56] LABS: Microscopic, Urine URINE MICROSCOPIC (MICROSCOPIC)
[2019-05-20 18:50] LABS: Appearance,Urine CLEAR (Clear); Bilirubin,Urine Negative (Negative); Blood, Urine Negative (Negative); Color,Urine YELLOW (Yellow); Glucose,Urine (UA) Negative (Negative); Ketones,Urine Negative (Negative); Leukocyte Esterase,Urine 1+ (Negative); Nitrate,Urine Negative (Negative); PH,Urine 6.5 (5.0-8.5); Protein,Urine Negative (Negative); Specific Gravity, Urine 1.015 (1.005-1.030); Urobilinogen,Urine 0.2 EU/dl (0.2)
[2019-05-20 19:04] LABS: Amorphous Sediment,Urine Trace /lpf
== END ==
PROVIDERS: Visit Provider Nurse Practitioner Family
DX: R82.90 Unspecified abnormal findings in urine (principal)
CPT/HCPCS: 81001; 87086

== ENCOUNTER → 2019-06-12 17:52 | Outpatient (CLI) | payer OTHER, SELFPAY ==
[2019-06-12 19:50] LABS: Amphetamine/Metha Screen,Urine Negative ng/mL (<1000); Barbiturates Screen,Urine Negative ng/mL (<200); Benzodiazepines Screen,Urine Negative ng/mL (<200); Cannabinoid Screen,Urine Negative ng/mL (<50); Cocaine Screen,Urine Negative ng/mL (<300); Methadone Screen,Urine Negative ng/mL (<300); Opiate Screen,Urine Negative ng/mL (<300); Phencyclidine Screen,Urine Negative ng/mL (<25)
== END ==
PROVIDERS: Visit Provider Nurse Practitioner Family
DX: Z79.899 Other long term (current) drug therapy (principal)
CPT/HCPCS: 80305

== ENCOUNTER → 2019-06-17 17:22 | Outpatient (CLI) | payer OTHER, SELFPAY ==
[2019-06-17 20:37] LABS: Amphetamine/Metha Screen,Urine Negative ng/mL (<1000); Barbiturates Screen,Urine Negative ng/mL (<200); Benzodiazepines Screen,Urine Negative ng/mL (<200); Cannabinoid Screen,Urine Negative ng/mL (<50); Cocaine Screen,Urine Negative ng/mL (<300); Methadone Screen,Urine Negative ng/mL (<300); Opiate Screen,Urine Negative ng/mL (<300); Phencyclidine Screen,Urine Negative ng/mL (<25)
== END ==
PROVIDERS: Visit Provider Emergency Medicine
DX: R35.0 Frequency of micturition (principal); Z79.899 Other long term (current) drug therapy
CPT/HCPCS: 80305; 87086

== ENCOUNTER → 2019-07-15 17:19 | Outpatient (CLI) | payer OTHER, SELFPAY ==
[2019-07-15 21:08] LABS: Amphetamine/Metha Screen,Urine Negative ng/ml (<1000)
[2019-07-15 21:09] LABS: Barbiturates Screen,Urine Negative ng/ml (<200); Benzodiazepines Screen,Urine Negative ng/ml (<200)
[2019-07-15 21:10] LABS: Cannabinoid Screen,Urine Negative ng/ml (<50)
[2019-07-15 21:11] LABS: Cocaine Screen,Urine Negative ng/ml (<300); Methadone Screen,Urine Negative ng/ml (<300)
[2019-07-15 21:12] LABS: Opiate Screen,Urine Negative ng/ml (<300)
[2019-07-15 21:13] LABS: Phencyclidine Screen,Urine Negative ng/ml (<25)
== END ==
PROVIDERS: Visit Provider Emergency Medicine
DX: M54.9 Dorsalgia, unspecified (principal); Z79.899 Other long term (current) drug therapy
CPT/HCPCS: 80305; 87086

== ENCOUNTER 2019-07-16 14:13 | Outpatient (CLI) | payer OTHER, SELFPAY | END 2019-07-16 16:00 | disposition home or self-care (01) | LOC: ACC 14:15 | PROVIDERS: PCP Emergency Medicine; Visit Provider Emergency Medicine | DX: Z51.81 Encounter for therapeutic drug level monitoring (principal); Z79.01 Long term (current) use of anticoagulants | CPT/HCPCS: 85610; 99211; G0463 ==

== ENCOUNTER 2019-07-28 14:09 | Outpatient (CLI) | payer OTHER, SELFPAY ==
[2019-07-28 14:54] LABS: PHA INR Fingerstick 2.1 (0.9-1.1)
== END 2019-07-28 14:57 | disposition home or self-care (01) ==
LOC: ACC 14:09
PROVIDERS: PCP Emergency Medicine; Visit Provider Emergency Medicine
DX: Z51.81 Encounter for therapeutic drug level monitoring (principal); Z79.01 Long term (current) use of anticoagulants
CPT/HCPCS: 85610; 99211; G0463

== ENCOUNTER 2019-08-07 14:54 | Outpatient (CLI) | payer OTHER, SELFPAY ==
[2019-08-07 15:38] LABS: PHA INR Fingerstick 1.2 (0.9-1.1)
== END 2019-08-07 15:40 | disposition home or self-care (01) ==
PROVIDERS: PCP Emergency Medicine; Referring Provider Emergency Medicine; Visit Provider Emergency Medicine
DX: Z51.81 Encounter for therapeutic drug level monitoring (principal); Z79.01 Long term (current) use of anticoagulants
CPT/HCPCS: 85610; 99211; G0463

== ENCOUNTER 2019-08-11 14:01 | Outpatient (CLI) | payer OTHER, SELFPAY ==
[2019-08-11 16:24] LABS: PHA INR Fingerstick 2.2 (0.9-1.1)
== END 2019-08-11 17:00 | disposition home or self-care (01) ==
LOC: ACC 14:02
PROVIDERS: PCP Emergency Medicine; Visit Provider Emergency Medicine
DX: Z51.81 Encounter for therapeutic drug level monitoring (principal); Z79.01 Long term (current) use of anticoagulants
CPT/HCPCS: 85610; 99211; G0463

== ENCOUNTER → 2019-09-09 14:25 | Outpatient (CLI) | payer OTHER, SELFPAY ==
[2019-09-10 16:38] LABS: Covid-19 Nasal PCR Sendout Lex NOT DETECTED
== END ==
PROVIDERS: Visit Provider Physician Assistant
DX: J02.9 Acute pharyngitis, unspecified (principal); R05 Cough; R19.7 Diarrhea, unspecified
CPT/HCPCS: U0003

== ENCOUNTER 2019-12-31 13:34 | Outpatient (CLI) | payer OTHER, SELFPAY ==
[2019-12-31 13:58] LABS: PHA INR Fingerstick 1.7 (0.9-1.1)
== END 2019-12-31 13:59 | disposition home or self-care (01) ==
LOC: ACC 13:34
PROVIDERS: PCP Emergency Medicine; Visit Provider Emergency Medicine
DX: Z51.81 Encounter for therapeutic drug level monitoring (principal); Z79.01 Long term (current) use of anticoagulants
CPT/HCPCS: 85610; 99211; G0463

== ENCOUNTER 2020-01-08 12:11 | Emergency (ER) | payer OTHER, SELFPAY ==
[2020-01-08] VITALS (9 sets, daily range): BP systolic 94–159; BP diastolic 54–106; PULSE 55–118; RESP 16–18; TEMP 36.6–36.8; O2SAT 88–100; BMI 26.1
--- NOTE | 2020-01-08 12:03 | ECG_ITS ---
APPROVED REPORT Exam: Resting ECG HR:69 bpm ECG Measurements Heart Rate 69 AXES DE 126 P 47 QRSd 84 QRS 28 QT 402 T 40 QTc 430 <Conclusion> Normal sinus rhythm Normal ECG Electronically signed by : Isac Pate, 01/09/2020 07:12:12
--- NOTE | 2020-01-08 12:13 | XR_ITS ---
PROCEDURE: XR CHEST PORTABLE CLINICAL HISTORY: cough COMPARISON: CT CTAC CTA-CHEST from 08/06/2013 CR XR CHEST 2V from 01/29/2019 CR XR CHEST 2V from 04/16/2019 CR XR CHEST 2V from 05/15/2019 FINDINGS: The cardiomediastinal silhouette and pulmonary vascularity are within normal limits. The lungs are clear without infiltrates, suspicious nodules, or pleural effusions. There is mild midthoracic curvature convex right IMPRESSION: No acute findings. Dictated by: Balta Chapin MD 01/08/2020 12:45 Balta Chapin MD in [place] 01/08/2020 12:45
[2020-01-08 12:29] LABS: Basophils # 0.1 K/mm3 (0-0.2); Basophils % 1.1 % (0.1-2.0); Eosinophils # 0.1 K/mm3 (0.0-0.4); Eosinophils % 1.9 % (0.1-12.0); Hematocrit 47.2 % (37.0-47.0); Hemoglobin 16.3 g/dL (12.2-16.2); Lymphocytes # 2.1 K/mm3 (0.7-4.5); Lymphocytes % 35.6 % (10-50); Mean Corpuscular HGB Conc 34.6 g/dL (31.8-35.4); Mean Corpuscular Hemoglobin 30.8 pg (27.0-31.2); Mean Platelet Volume 7.9 fl (7.4-10.4); Monocytes # 0.3 K/mm3 (0.1-1.0); Monocytes % 4.5 % (1.7-9.3); Neutrophils # 3.4 K/mm3 (1.8-7.8); Neutrophils % 56.8 % (37.0-80.0); Platelet Count 203 K/mm3 (142-424); Red Cell Distribution Width 14.2 % (11.5-17.5); White Blood Count 5.9 K/mm3 (4.8-10.8)
[2020-01-08 12:36] LABS: Alanine Aminotransferase 29 U/L (12-78); Albumin Level 4.7 g/dl (3.5-5.0); Albumin/Globulin Ratio 1.4 (1.1-1.8); Alkaline Phosphatase 81 U/L (38-126); Anion Gap 10.9 mEq/L (5-15); Aspartate Amino Transferase 39 U/L (14-36); Bilirubin,Total 0.5 mg/dl (0.2-1.3); Blood Urea Nitrogen 16 mg/dl (7-17); Calcium 9.6 mg/dl (8.4-10.2); Carbon Dioxide 32 mmol/L (22.0-30.0); Chloride 102 mmol/L (98-107); Creatinine Clearance Estimated 88 mL/min (50-200); Estimated Glomerular Filt Rate 53 ml/min (>60); GFR (African American) 64 ML/MIN (>60); Globulin 3.3 g/dL (1.3-3.2); Glucose 123 mg/dl (74-100); Lipase 331 U/L (23-300); Potassium 3.9 mmoL/L (3.5-5.1); Sodium 141 mmol/L (136-145)
[2020-01-08 12:38] LABS: INR 2.01 (0.9-1.1); Prothrombin Time 19.8 seconds (9.4-11.8)
--- NOTE | 2020-01-08 12:42 | HMH.EDCP ---
ED Disposition Clinical Impression: Pancreatitis, chronic, Nonspecific chest pain Disposition: Home, Self-Care Condition on Discharge: Fair Instructions: DI for Atypical Chest Pain Prescriptions: Ondansetron [Zofran 4mg ODT] 4 mg PO BID #10 tab.[email or web address] Transmission Status: Pending to [facility] Referrals: Kang Oliver MD [Primary Care Provider] - - Critical Care Critical Care Time: No Attestation: On 01/08/20, the high probability of a clinically significant, sudden or life threatening deterioration of the following system(s) required my full and direct attention, intervention and personal management. The time I documented below is in addition to time spent performing reported procedures but includes the following listed in this critical care notation. Medical Decision Making - Medical Records Medical records reviewed: Yes: I reviewed the patient's medical records. - Fermín Inquiry Pt receiving controlled substance: No Vital Signs: 01/08/20 12:12 01/08/20 12:15 01/08/20 12:42 Temperature 98.3 F Temperature Source Oral Pulse Rate [Right Radial] 94 H 72 60 Respiratory Rate 18 17 Blood Pressure [Right Arm] 110/66 122/77 100/72 L Blood Pressure Mean [Right Arm] 80 92 81 Blood Pressure Source [Right Arm] Automatic Cuff Automatic Cuff Blood Pressure Position [Right Arm] Sitting Supine 02 Sat by Pulse Oximetry 88 L 98 93 L Oxygen Delivery Method Room Air Room Air Room Air 01/08/20 13:12 01/08/20 13:30 01/08/20 14:00 Temperature Temperature Source Pulse Rate [Right Radial] 55 L 65 118 H Respiratory Rate Blood Pressure [Right Arm] 105/64 L 108/78 L 159/106 H Blood Pressure Mean [Right Arm] 77 88 123 Blood Pressure Source [Right Arm] Automatic Cuff Automatic Cuff Automatic Cuff Blood Pressure Position [Right Arm] Supine Supine Supine 02 Sat by Pulse Oximetry 93 L 92 L 100 Oxygen Delivery Method Room Air Room Air 01/08/20 14:30 Temperature Temperature Source Pulse Rate [Right Radial] 57 L Respiratory Rate Blood Pressure [Right Arm] 109/74 L Blood Pressure Mean [Right Arm] 85 Blood Pressure Source [Right Arm] Automatic Cuff Blood Pressure Position [Right Arm] Sitting 02 Sat by Pulse Oximetry 94 L Oxygen Delivery Method Room Air - Lab Data Lab Results 01/08/20 12:20: WBC 5.9, RBC 5.30, Hgb 16.3 H, Hct 47.2 H, MCV 89.0, MCH 30.8, MCHC 34.6, RDW 14.2, Plt Count 203, MPV 7.9, Neut % (Auto) 56.8, Lymph % (Auto) 35.6, [place] % (Auto) 4.5, Eos % (Auto) 1.9, Baso % (Auto) 1.1, Neut # (Auto) 3.4, Lymph # (Auto) 2.1, [place] # (Auto) 0.3, Eos # (Auto) 0.1, Baso # (Auto) 0.1 01/08/20 12:20: PT 19.8 H, INR 2.01 H 01/08/20 12:20: Sodium 141, Potassium 3.9, Chloride 102, Carbon Dioxide 32 H, Anion Gap 10.9, BUN 16, Creatinine 1.10 H, Estimated Creat Clear 88, Estimated GFR 53 L, Est GFR ( Amer) 64, Glucose 123 H, Calcium 9.6, Total Bilirubin 0.5, AST 39 H, ALT 29, Alkaline Phosphatase 81, Troponin I < 0.01, NT-Pro-B Natriuret Pep 28.5, Total Protein 8.0, Albumin 4.7, Globulin 3.3 H, Albumin/Globulin Ratio 1.4, Lipase 331 H 01/08/20 14:20: Troponin I < 0.01 Result diagrams: 01/08/20 12:20 01/08/20 12:20 Orders (Tests/Meds): ED MEDICATIONS Discontinued Medications Generic Name Dose Route Start Last Admin Trade Name Tyrese PRN Reason Stop Dose Admin Acetaminophen 1,000 mg 01/08/20 12:14 01/08/20 12:25 Tylenol 500mg Tablet PO 01/08/20 12:15 1,000 mg ONCE ONE Administration Ondansetron HCl 4 mg 01/08/20 12:14 01/08/20 12:25 Zofran 4mg/2ml Vial IV 01/08/20 12:15 4 mg ONCE ONE Administration ORDERS Category Date Time Status Troponin I Q3H Lab 01/08/20 18:15 Ordered - ECG Data Tracing #1 ECG initial impression date: 01/08/20 ECG initial impression time: 12:05 ECG normal with no acute: arrhythmias, ischemia, conduction abnormalities, chamber hypertrophy Normal Sinus Rhythm: Yes - Reevaluation(s) Time: 15:03 Reevaluatio
[2020-01-08 12:49] LABS: NT Pro Brain Natriuretic Pep. 28.5 pg/mL (0-125); Troponin I < 0.01 ng/ml (0.00-0.034)
--- NOTE | 2020-01-08 13:20 | CT_ITS ---
PROCEDURE: CT ABDOMEN PELVIS WO CON CLINICAL INDICATION: epigastric pain Abdominal pain, back pain, flank pain, epigastric pain COMPARISON: CT ABDPELWO CT abdomen pelvis wo con from 10/04/2018 TECHNIQUE: Axial images obtained with sagittal and coronal reformats. All CT scans at the facility use one or more dose reduction, viz: automated exposure control, ma/kV adjustment per patient size (including targeted exams where dose is matched to indication, i.e. head), or iterative reconstruction technique. FINDINGS: LOWER THORAX: There is some scarring in the lung bases. Calcified granuloma is present in the left lower lobe. ABDOMEN & PELVIS: Diffuse fatty liver with some sparing of the left hepatic lobe and gallbladder fossa. No calcified gallstones. The spleen, adrenal glands, pancreas, and kidneys have an unremarkable appearance. No renal or ureteral calculi. No evidence of appendicitis. No intestinal obstruction or free air. There has been a prior hysterectomy. No acute bony findings. IMPRESSION: 1. No acute abdominal or pelvic findings. 2. Fatty liver Dictated by: Balta Chapin MD 01/08/2020 14:50 Balta Chapin MD in [place] 01/08/2020 14:50
[2020-01-08 14:59] LABS: Troponin I < 0.01 ng/ml (0.00-0.034)
== END 2020-01-08 15:12 | disposition home or self-care (01) ==
PROVIDERS: Emergency Provider Emergency Medicine; PCP Emergency Medicine
DX: K86.1 Other chronic pancreatitis (principal); K21.9 Gastro-esophageal reflux disease without esophagitis; Z79.01 Long term (current) use of anticoagulants; F41.8 Other specified anxiety disorders; F19.11 Other psychoactive substance abuse, in remission; Z90.710 Acquired absence of both cervix and uterus; Z90.49 Acquired absence of other specified parts of digestive tract; F17.210 Nicotine dependence, cigarettes, uncomplicated; Z88.0 Allergy status to penicillin; Z79.899 Other long term (current) drug therapy
CPT/HCPCS: 71045; 74176; 80053; 83690; 83880; 84484; 85025; 85610; 93005; 96374; 99284; J2405

== ENCOUNTER → 2020-02-09 08:54 | Outpatient (CLI) | payer OTHER, SELFPAY ==
--- NOTE | 2020-02-09 08:54 | US_ITS ---
PROCEDURE: US GALLBLADDER CLINICAL INDICATION: ruq pain COMPARISON: CT CT ABDOMEN PELVIS WO CON from 01/08/2020 FINDINGS: Pancreas: Unremarkable/Not well seen Liver: There is diffuse fatty infiltration of the liver. There is decreased echogenicity along the posterior aspect of the left hepatic lobe which may be related to focal fatty sparing. MRI may confirm.. There is appropriate direction of blood flow within a non dilated portal vein. Right kidney: Unremarkable appearing. No hydronephrosis. Gallbladder: No stones are evident. There is no gallbladder wall thickening. The common bile duct is enlarged measuring up to 9 mm. No intrahepatic biliary ductal dilatation. IMPRESSION: 1. Focal decreased echogenicity along the posterior aspect of the left hepatic lobe which may be due to focal fatty sparing. MRI may confirm. 2. Prominent common bile duct. MRCP may provide further evaluation. 3. No gallstones evident. Dictated by: Balta Chapin MD 02/09/2020 18:31 Balta Chapin MD in [place] 02/09/2020 18:31
== END ==
PROVIDERS: PCP Emergency Medicine; Visit Provider Family Medicine
DX: K86.1 Other chronic pancreatitis (principal)
CPT/HCPCS: 76705

== ENCOUNTER → 2020-03-15 16:39 | Outpatient (CLI) | payer OTHER, SELFPAY ==
[2020-03-15 17:14] LABS: Adenovirus,PCR Not Detected (NotDetected); Bordetella Pertussis Not Detected (NotDetected); Chlamydophila Pneumoniae, PCR Not Detected (NotDetected); Coronavirus 19, PCR Not Detected (NotDetected); Coronavirus 229E Not Detected (NotDetected); Coronavirus NL63 Not Detected (NotDetected); Coronavirus OC43 Not Detected (NotDetected); Coronovirus HKU1,PCR Not Detected (NotDetected); Human Metapneumovirus Not Detected (NotDetected); Influenza A, PCR Not Detected (NotDetected); Influenza AH1, 2009 Not Detected (NotDetected); Influenza AH1, PCR Not Detected (NotDetected); Influenza AH3,PCR Not Detected (NotDetected); Influenza B, PCR Not Detected (NotDetected); Mycoplasma Pneumoniae, PCR Not Detected (NotDetected); Parainfluenza 1, PCR Not Detected (NotDetected); Parainfluenza 2, PCR Not Detected (NotDetected); Parainfluenza 3, PCR Not Detected (NotDetected); Parainfluenza 4, PCR Not Detected (NotDetected); Respiratory Syncytial Virus Not Detected (NotDetected); Rhinovirus/Enterovirus Not Detected (NotDetected)
== END ==
PROVIDERS: PCP Emergency Medicine; Visit Provider Emergency Medicine
DX: Z03.818 Encounter for observation for suspected exposure to other biological agents ruled out (principal)
CPT/HCPCS: 87581; 87633; 87798; U0003

== ENCOUNTER → 2020-04-06 17:55 | Outpatient (CLI) | payer OTHER, SELFPAY | PROVIDERS: Visit Provider Family Medicine | DX: M54.9 Dorsalgia, unspecified (principal) | CPT/HCPCS: 87086 ==

== ENCOUNTER → 2020-04-12 07:54 | Outpatient (CLI) | payer OTHER, SELFPAY ==
--- NOTE | 2020-04-12 07:54 | CT_ITS ---
PROCEDURE: CT ABDOMEN PELVIS WO CON CLINICAL INDICATION: stone protocol bilateral flank pain, microscopic hematuria prior 01/08/20 COMPARISON: CT ABDPELWO CT abdomen pelvis wo con from 09/05/[address] ABDOMEN PELVIS WO CON from 01/08/2020 TECHNIQUE: Axial images obtained with sagittal and coronal reformats. All CT scans at the facility use one or more dose reduction, viz: automated exposure control, ma/kV adjustment per patient size (including targeted exams where dose is matched to indication, i.e. head), or iterative reconstruction technique. FINDINGS: LOWER THORAX: There are minimal atelectatic changes in the lower lobes. ABDOMEN & PELVIS: There is diffuse fatty liver with some sparing of the left hepatic lobe. Gallbladder and spleen and adrenal glands and pancreas have an unremarkable appearance. No renal or ureteral calculi. There is minimal ectasia of the renal pelves on both sides however, no definite ureteral calculus is evident. No urinary bladder calculi. There is a mild amount of retained colonic feces. No intestinal obstruction or free air. No evidence of appendicitis. No evidence of diverticulitis. There has been a prior hysterectomy. There is some nodular soft tissue density noted at the base of the urinary bladder. This is of questionable clinical significance measuring approximately 1.9 cm. This is not significantly changed. No acute bony findings. IMPRESSION: 1. No acute abdominal or pelvic findings. 2. Fatty liver. 3. Minimal ectasia of the renal pelves on both sides which is nonspecific and of questionable clinical significance. Dictated by: Balta Chapin MD 04/13/2020 10:34 Balta Chapin MD in [place] 04/13/2020 10:34
== END ==
PROVIDERS: PCP Emergency Medicine; Visit Provider Family Medicine
DX: R10.9 Unspecified abdominal pain (principal); R31.9 Hematuria, unspecified
CPT/HCPCS: 74176

== ENCOUNTER 2020-07-12 09:47 | Outpatient (CLI) | payer OTHER, SELFPAY ==
[2020-07-12 10:48] LABS: PHA INR Fingerstick 2.5 (0.9-1.1)
== END 2020-07-12 11:03 | disposition home or self-care (01) ==
LOC: ACC 09:54
PROVIDERS: PCP Emergency Medicine; Visit Provider Emergency Medicine
DX: Z51.81 Encounter for therapeutic drug level monitoring (principal); Z79.01 Long term (current) use of anticoagulants
CPT/HCPCS: 85610; 99211; G0463

== ENCOUNTER 2020-07-28 13:21 | Outpatient (CLI) | payer OTHER, SELFPAY ==
[2020-07-28 14:02] LABS: Microscopic, Urine URINE MICROSCOPIC (MICROSCOPIC)
[2020-07-28 14:44] LABS: Appearance,Urine CLEAR (Clear); Bilirubin,Urine Negative (Negative); Blood, Urine TRACE-I (Negative); Color,Urine YELLOW (Yellow); Glucose,Urine (UA) Negative (Negative); Ketones,Urine Negative (Negative); Leukocyte Esterase,Urine 1+ (Negative); Nitrate,Urine Negative (Negative); Protein,Urine Negative (Negative); Urobilinogen,Urine 0.2 EU/dl (0.2)
[2020-07-28 16:37] LABS: Chloride 106 mmol/L (98-107); Potassium 4.4 mmoL/L (3.5-5.1); Sodium 142 mmol/L (136-145)
[2020-07-28 16:38] LABS: PHA INR Fingerstick 4.2 (0.9-1.1)
[2020-07-28 16:40] LABS: Alanine Aminotransferase 84 U/L (12-78); Albumin Level 4.2 g/dl (3.5-5.0); Albumin/Globulin Ratio 1.5 (1.1-1.8); Alkaline Phosphatase 80 U/L (38-126); Anion Gap 10.4 mEq/L (5-15); Aspartate Amino Transferase 80 U/L (14-36); Bilirubin,Total 0.4 mg/dl (0.2-1.3); Blood Urea Nitrogen 9 mg/dl (7-17); Carbon Dioxide 30 mmol/L (22.0-30.0); Estimated Glomerular Filt Rate 59 ml/min (>60); GFR (African American) 71 ML/MIN (>60); Globulin 2.8 g/dL (1.3-3.2)
[2020-07-28 16:41] LABS: Calcium 9.4 mg/dl (8.4-10.2); Glucose 112 mg/dl (74-100)
[2020-07-28 17:20] LABS: Prothrombin Time 43.4 seconds (9.4-11.8)
[2020-07-28 17:34] LABS: INR 4.08 (0.9-1.1)
[2020-07-28 17:38] LABS: Bacteria,Urine 1+ /lpf; Trichomonas,Urine 2+ /lpf
--- NOTE | 2020-07-29 09:18 | HMH.PHAINT ---
07/29/2020-PATIENT HAD INR DRAWN IN [facility]MADIN CLINIC ON 07/28/2020. PATIENT PRESENTED TO CLINIC WITH LARGE CONTAINER OF CRANBERRY JUICE ABOUT 1/4 GONE. DISCUSSED THE EFFECT OF CRANBERRIES ON INR. INR WAS 4.2 IN COUMADIN CLINIC SO SENT PATIENT TO LAB TO VERIFY INR WITH VENIPUNCTURE. PATIENT INDICATED HER BACK AND UPPER LEGS WERE HURTING. PATIENT ALSO INDICATED POTENTIALLY PASSING BLOOD IN URINE. PATIENT HAD BEEN SEEN AT [facility] ER AND WAS GIVEN STEROIDS FOR INFLAMMATION PRIOR TO 07/12 VISIT IN COUMADIN CLINIC (INR 2.5 ON 07/12/2020). DISCUSSED THE EFFECTS OF STEROIDS ON INR AT THAT TIME. CALLED DR. GILBERT'S OFFICE ON 07/28/2020 TO REQUEST A URINALYIS AND CMP FOR PATIENT BECAUSE PATIENT CONTINUED TO HAVE PAIN AND BLOOD IN URINE. PATIENT URINE +1 FOR BLOOD AND +2 FOR TRICHOMONAS. SPOKE WITH Frank DELACRUZ THIS AM FROM OFFICE. INDICATED PATIENT SHOULD COME IN TO BE SEEN TODAY. CALLED AND SPOKE WITH PATIENT THIS AM ABOUT THE NECESSITY OF SCHEDULING AN APPOINTMENT WITH MD TODAY. SHE INDICATED SHE UNDERSTOOD AND WOULD MAKE APPOINTMENT. INSTRUCTED PATIENT TO CALL IF ABX WERE STARTED FOR PATIENT.
== END 2020-07-28 15:00 | disposition home or self-care (01) ==
LOC: ACC 13:22
PROVIDERS: PCP Emergency Medicine; Visit Provider Emergency Medicine
DX: N39.0 Urinary tract infection, site not specified (principal); Z51.81 Encounter for therapeutic drug level monitoring; Z79.01 Long term (current) use of anticoagulants
CPT/HCPCS: 36415; 80053; 81001; 85610; 87086; 99211; G0463

== ENCOUNTER → 2020-07-28 13:58 | Outpatient (CLI) | payer OTHER, SELFPAY | PROVIDERS: Visit Provider Emergency Medicine | DX: Z51.81 Encounter for therapeutic drug level monitoring (principal) ==

== ENCOUNTER 2020-08-02 08:48 | Outpatient (CLI) | payer OTHER, SELFPAY ==
[2020-08-02 10:58] LABS: PHA INR Fingerstick 2.5 (0.9-1.1)
== END 2020-08-02 11:38 | disposition home or self-care (01) ==
LOC: ACC 08:49
PROVIDERS: PCP Emergency Medicine; Visit Provider Emergency Medicine
DX: Z51.81 Encounter for therapeutic drug level monitoring (principal); Z79.01 Long term (current) use of anticoagulants
CPT/HCPCS: 85610; 99211; G0463

== ENCOUNTER → 2020-08-05 13:51 | Outpatient (CLI) | payer OTHER, SELFPAY ==
[2020-08-05 15:08] LABS: INR 1.56 (0.9-1.1); Prothrombin Time 17.8 seconds (10.1-12.5)
[2020-08-07 13:02] LABS: Hep A Ab, IgM Negative (Negative); Hepatitis B Core Antibody IgM Negative (Negative)
[2020-08-07 13:42] LABS: Hepatitis B Surface Antigen Positive (Negative); Hepatitis C Antibody >11.0 s/co ratio (0.0-0.9)
== END ==
PROVIDERS: Visit Provider Physician Assistant
DX: R74.8 Abnormal levels of other serum enzymes (principal); Z51.81 Encounter for therapeutic drug level monitoring; Z79.01 Long term (current) use of anticoagulants
CPT/HCPCS: 36415; 80074; 85610

== ENCOUNTER → 2020-08-06 12:51 | Outpatient (CLI) | payer OTHER, SELFPAY ==
[2020-08-06 12:55] LABS: Microscopic, Urine URINE MICROSCOPIC (MICROSCOPIC)
[2020-08-06 13:33] LABS: Appearance,Urine SL CLOUDY (Clear); Bilirubin,Urine Negative (Negative); Blood, Urine TRACE-I (Negative); Color,Urine YELLOW (Yellow); Glucose,Urine (UA) Negative (Negative); Ketones,Urine Negative (Negative); Leukocyte Esterase,Urine Negative (Negative); Nitrate,Urine Negative (Negative); PH,Urine 5.5 (5.0-8.5); Protein,Urine Negative (Negative); Specific Gravity, Urine >= 1.030 (1.005-1.030); Urobilinogen,Urine 0.2 EU/dl (0.2)
[2020-08-06 13:35] LABS: Basophils # 0.1 K/mm3 (0-0.2); Eosinophils # 0.1 K/mm3 (0.0-0.4); Hematocrit 45.9 % (37.0-47.0); Hemoglobin 14.8 g/dL (12.2-16.2); Lymphocytes # 1.9 K/mm3 (0.7-4.5); Lymphocytes % 31.8 % (10-50); Mean Corpuscular HGB Conc 32.3 g/dL (31.8-35.4); Mean Corpuscular Volume 89.6 fl (81-99); Mean Platelet Volume 7.6 fl (7.4-10.4); Monocytes # 0.3 K/mm3 (0.1-1.0); Neutrophils # 3.7 K/mm3 (1.8-7.8); Neutrophils % 60.2 % (37.0-80.0); Platelet Count 185 K/mm3 (142-424); Red Blood Count 5.13 M/mm3 (4.20-5.40); White Blood Count 6.1 K/mm3 (4.8-10.8)
[2020-08-06 13:42] LABS: RBC,Urine Occasional #/hpf (0-3); WBC,Urine Occasional #/hpf (0-3)
[2020-08-06 13:43] LABS: Bacteria,Urine 2+ /lpf; Squamous Epithelial Cell,Urine TNTC #/hpf (0-5)
[2020-08-11 09:31] LABS: D001-IgE D pteronyssinus <0.10 kU/L (Class 0); D002-IgE D farinae <0.10 kU/L (Class 0); E001-IgE Cat Dander <0.10 kU/L (Class 0); E005-IgE Dog Dander <0.10 kU/L (Class 0); G002-IgE Bermuda Grass <0.10 kU/L (Class 0); G006-IgE Timothy Grass <0.10 kU/L (Class 0); I006-IgE Cockroach, German <0.10 kU/L (Class 0); Immunoglobulin E, Total 185 IU/mL (6-495); Immunoglobulin E, Total 200 IU/mL (6-495); M001-IgE Penicillium chrysogen <0.10 kU/L (Class 0); M002-IgE Cladosporium herbarum <0.10 kU/L (Class 0); M003-IgE Aspergillus fumigatus <0.10 kU/L (Class 0); M006-IgE Alternaria alternata <0.10 kU/L (Class 0); T001-IgE Maple/Box Elder <0.10 kU/L (Class 0); T006-IgE Cedar, Mountain <0.10 kU/L (Class 0); T007-IgE Oak, White <0.10 kU/L (Class 0); T008-IgE Elm, American <0.10 kU/L (Class 0); T010-IgE Walnut <0.10 kU/L (Class 0); T011-IgE Maple Leaf Sycamore <0.10 kU/L (Class 0); T014-IgE Cottonwood <0.10 kU/L (Class 0); T015-IgE Ash, White <0.10 kU/L (Class 0); T022-IgE Pecan, Hickory <0.10 kU/L (Class 0); T070-IgE White Mulberry <0.10 kU/L (Class 0); W001-IgE Ragweed, Short <0.10 kU/L (Class 0); W011-IgE Thistle, Russian <0.10 kU/L (Class 0); W014-IgE Pigweed, Common <0.10 kU/L (Class 0); W016-IgE Rough Marshelder <0.10 kU/L (Class 0)
[2020-08-11 11:20] LABS: E072-IgE Mouse Urine <0.10 kU/L (Class 0); M003-IgE Aspergillus fumigatus <0.10 kU/L (Class 0)
== END ==
PROVIDERS: Internal Medicine Pulmonary Disease; Visit Provider Emergency Medicine
DX: R06.00 Dyspnea, unspecified (principal); R06.2 Wheezing; J44.9 Chronic obstructive pulmonary disease, unspecified; J98.4 Other disorders of lung; A59.03 Trichomonal cystitis and urethritis
CPT/HCPCS: 81001; 82785; 85025; 86003; 87086

== ENCOUNTER 2020-08-13 14:55 | Outpatient (CLI) | payer OTHER, SELFPAY | END 2020-08-13 15:23 | disposition home or self-care (01) | LOC: ACC 14:56 | PROVIDERS: PCP Emergency Medicine; Visit Provider Emergency Medicine | DX: Z51.81 Encounter for therapeutic drug level monitoring (principal); Z79.01 Long term (current) use of anticoagulants | CPT/HCPCS: 85610; 99211; G0463 ==

== ENCOUNTER 2020-08-25 09:44 | Outpatient (CLI) | payer OTHER, SELFPAY ==
[2020-08-25 15:23] LABS: PHA INR Fingerstick 2.8 (0.9-1.1)
== END 2020-08-25 15:27 | disposition home or self-care (01) ==
LOC: ACC 09:46
PROVIDERS: PCP Emergency Medicine; Visit Provider Emergency Medicine
DX: Z51.81 Encounter for therapeutic drug level monitoring (principal); Z79.01 Long term (current) use of anticoagulants
CPT/HCPCS: 85610; 99211; G0463

== ENCOUNTER → 2020-09-15 16:51 | Outpatient (CLI) | payer OTHER, SELFPAY ==
[2020-09-15 17:33] LABS: Basophils # 0.1 K/mm3 (0-0.2); Basophils % 0.8 % (0.1-2.0); Eosinophils # 0.3 K/mm3 (0.0-0.4); Eosinophils % 3.8 % (0.1-12.0); Hematocrit 48.5 % (37.0-47.0); Hemoglobin 14.9 g/dL (12.2-16.2); Lymphocytes # 1.9 K/mm3 (0.7-4.5); Lymphocytes % 25.1 % (10-50); Mean Corpuscular HGB Conc 30.8 g/dL (31.8-35.4); Mean Corpuscular Hemoglobin 28.4 pg (27.0-31.2); Monocytes # 0.5 K/mm3 (0.1-1.0); Monocytes % 6.2 % (1.7-9.3); Neutrophils # 4.7 K/mm3 (1.8-7.8); Neutrophils % 64.1 % (37.0-80.0); Platelet Count 266 K/mm3 (142-424); Red Blood Count 5.27 M/mm3 (4.20-5.40); Red Cell Distribution Width 16.6 % (11.5-17.5); White Blood Count 7.4 K/mm3 (4.8-10.8)
[2020-09-15 18:56] LABS: Albumin Level 3.8 g/dl (3.5-5.0); Albumin/Globulin Ratio 1.2 (1.1-1.8); Alkaline Phosphatase 218 U/L (38-126); Anion Gap 11.8 mEq/L (5-15); Bilirubin,Total 5.9 mg/dl (0.2-1.3); Blood Urea Nitrogen 11 mg/dl (7-17); Calcium 8.9 mg/dl (8.4-10.2); Carbon Dioxide 24 mmol/L (22.0-30.0); Chloride 106 mmol/L (98-107); Estimated Glomerular Filt Rate 59 ml/min (>60); GFR (African American) 71 ML/MIN (>60); Globulin 3.2 g/dL (1.3-3.2); Glucose 141 mg/dl (74-100); Lipase 271 U/L (23-300); Potassium 3.8 mmoL/L (3.5-5.1); Sodium 138 mmol/L (136-145)
[2020-09-15 19:02] LABS: Alanine Aminotransferase 773 U/L (12-78)
[2020-09-15 19:05] LABS: Aspartate Amino Transferase 927 U/L (14-36)
[2020-09-15 20:06] LABS: Prothrombin Time 78.2 seconds (10.1-12.5)
[2020-09-15 20:07] LABS: INR 7.71 (0.9-1.1)
[2020-09-17 10:12] LABS: HIV Screen 4th Generation wRfx Non Reactive (Non Reactive)
[2020-09-17 12:30] LABS: Hep A Ab, IgM Negative (Negative); Hep A Ab, Total Negative (Negative); Hep B Core Ab, Total Positive (Negative)
[2020-09-17 12:53] LABS: Hep B Surface Ab, Qual Non Reactive (.); Hepatitis B Surface Antigen Positive (Negative); Hepatitis C Antibody >11.0 s/co ratio (0.0-0.9)
== END ==
PROVIDERS: Visit Provider Emergency Medicine
DX: R11.0 Nausea (principal); K75.9 Inflammatory liver disease, unspecified; G62.9 Polyneuropathy, unspecified
CPT/HCPCS: 36415; 80053; 83690; 85025; 85610; 86703; 86704; 86706; 86708; 87340; 87380; 87522; G0432

== ENCOUNTER → 2020-09-20 10:26 | Outpatient (CLI) | payer OTHER, SELFPAY ==
[2020-09-20 11:31] LABS: Prothrombin Time 20.3 seconds (10.1-12.5)
[2020-09-20 11:43] LABS: Bilirubin, Conjugated 5.4 mg/dL (0.0-0.3); Bilirubin,Unconjugated 1.6 mg/dL (0.0-1.1)
[2020-09-20 11:44] LABS: Albumin Level 3.8 g/dl (3.5-5.0); Alkaline Phosphatase 218 U/L (38-126); Bilirubin,Direct 7.4 mg/dl (0.0-0.4); Bilirubin,Indirect 1.6 mg/dL (0.0-0.9); Total Protein,Serum 7.5 g/dl (6.3-8.2)
[2020-09-20 11:50] LABS: Alanine Aminotransferase 812 U/L (12-78)
[2020-09-20 12:02] LABS: Aspartate Amino Transferase 1142 U/L (14-36)
== END ==
PROVIDERS: Visit Provider Emergency Medicine
DX: B19.20 Unspecified viral hepatitis C without hepatic coma (principal); B16.9 Acute hepatitis B without delta-agent and without hepatic coma; R79.89 Other specified abnormal findings of blood chemistry
CPT/HCPCS: 36415; 80076; 85610; 87522

== ENCOUNTER 2020-09-22 19:15 | Emergency (ER) | payer OTHER, SELFPAY ==
[2020-09-22 19:17] VITALS: BP 130/78; PULSE 95; RESP 18; TEMP 36.9; O2SAT 96; BMI 28.0
--- NOTE | 2020-09-22 19:43 | XR_ITS ---
PROCEDURE INFORMATION: Exam: XR Chest Exam date and time: 09/22/2020 7:43 PM Age: 49 years old Clinical indication: Left-sided chest pain; Patient HX: Left sided chest pain TECHNIQUE: Imaging protocol: XR of the chest. Views: 2 views. COMPARISON: CR XR CHEST PORTABLE 01/08/2020 12:42 PM FINDINGS: Lungs: Unremarkable. No consolidation. Pleural spaces: Unremarkable. No pleural effusion. No pneumothorax. Heart/Mediastinum: Unremarkable. No cardiomegaly. Bones/joints: Unremarkable. IMPRESSION: No acute findings.
--- NOTE | 2020-09-22 19:48 | ECG_ITS ---
APPROVED REPORT Exam: Resting ECG HR:83 bpm ECG Measurements Heart Rate 83 AXES KS 126 P 46 QRSd 90 QRS 32 QT 374 T 34 QTc 439 Conclusion Normal sinus rhythm Normal ECG Electronically signed by : Isac Pate, 09/24/2020 15:03:38
--- NOTE | 2020-09-22 20:03 | PC.NURSE ---
When getting EKG, this RN noticed pt holding abdomen. When pt asked if she was having abd pain she stated she has been for [address] abdomen added
--- NOTE | 2020-09-22 20:17 | HMH.EDGENADL ---
ED Disposition Clinical Impression: Chest pain Qualifiers: Chest pain type: pleurodynia Qualified Code(s): R07.81 - Pleurodynia Disposition: Left Against Medical Advice Condition on Discharge: Fair Instructions: DI for Acute Pain -- Adult Additional Instructions: see pcp for follow up Referrals: Kang Oliver MD [Primary Care Provider] - - Critical Care Critical Care Time: No Attestation: On 09/22/20, the high probability of a clinically significant, sudden or life threatening deterioration of the following system(s) required my full and direct attention, intervention and personal management. The time I documented below is in addition to time spent performing reported procedures but includes the following listed in this critical care notation. Medical Decision Making - Medical Records Medical records reviewed: Yes: I reviewed the patient's medical records. - Fermín Inquiry Pt receiving controlled substance: No Vital Signs: 09/22/20 19:17 09/22/20 20:55 Temperature 98.5 F 98.5 F Temperature Source Oral Oral Pulse Rate 96 H Pulse Rate [Right Radial] 95 H Respiratory Rate 18 18 Blood Pressure 130/78 Blood Pressure [Right Arm] 130/78 Blood Pressure Mean [Right Arm] 95 Blood Pressure Source Automatic Cuff Blood Pressure Source [Right Arm] Automatic Cuff Blood Pressure Position Sitting Blood Pressure Position [Right Arm] Sitting 02 Sat by Pulse Oximetry 96 Oxygen Delivery Method Room Air Room Air - Lab Data Lab Results 09/22/20 20:18: Urine Color Yellow, Urine Appearance Clear, Urine pH 6.0, Ur Specific [place] 1.025, Urine Protein Negative, Urine Glucose (UA) Negative, Urine Ketones Negative, Urine Blood Negative, Urine Nitrate Negative, Urine Bilirubin 2+ A, Urine Urobilinogen 4.0, Ur Leukocyte Esterase Negative, Urine RBC 3-5, Urine WBC 5-10, Ur Squamous Epith Cells 5-10, Urine Bacteria Trace Orders (Tests/Meds): ED MEDICATIONS Discontinued Medications Generic Name Dose Route Start Last Admin Trade Name Freq PRN Reason Stop Dose Admin Sodium Chloride 1,000 mls @ 999 mls/hr 09/22/20 19:45 Sod Chlor 0.9% 1000ml Bag IV 09/22/20 20:45 .Q1H1M VIK ORDERS Category Date Time Status CT abdomen pelvis w con Stat Cat Scan 09/22/20 20:[address] angio chest Stat Cat Scan 05/05/21 20:19 Ordered - Radiology Data #1 Image(s): Chest Image Reviewed: Yes I reviewed the patient's radiology image Preliminary Findings: Normal/NAD - ECG Data Tracing #1 Normal Sinus Rhythm: Yes Ischemic changes: non-specific ST-T wave changes General Adult HPI - General Chief complaint: PAIN Stated complaint: pain in the lungs Time Seen by Provider: 09/22/20 20:00 Mode of Arrival: Ambulatory Source of Information: Patient, Medical Record Limitations: No Limitations Description of Symptoms (Recalled from ER Triage Doc. by RN): Pt reports sudden onset of sharp pain in her left lung 30 minutes prior to arrival to ED. Pt states pain in no longer there but she is now hurting in left side of chest and right shoulder. She is concerned about her liver enzymes and blood thinner r/t hep B diagnosis 3-4 days ago. She denies SOA, fevers, N/V/D, dizziness, cough. - History of Present Illness HPI narrative: lung pain Onset (ago): hour(s) Location: chest Severity: moderate Associated symptoms: denies other symptoms - Related Data Home Medications Medication Instructions Recorded Confirmed buprenorphine 8 mg-naloxone 2 mg SUBLINGUAL #14 tab 04/08/19 09/15/20 sublingual tablet Previous Rx's Medication Instructions Recorded albuterol sulfate 90 mcg/actuation 2 puff INHALATION Q8H #18 g 12/02/19 aerosol inhaler albuterol sulfate See Rx Instructions .ROUTE 01/19/20 .COMPLEX #180 ml polyethylene glycol 3350 17 17 g PO DAILY #119 g 05/07/20 gram/dose oral powder duloxetine 60 mg capsule,delayed See Rx Instructions .ROUTE 05/11/20 release .COMPLEX #
[2020-09-22 20:22] LABS: Microscopic, Urine URINE MICROSCOPIC (MICROSCOPIC)
[2020-09-22 20:32] LABS: Appearance,Urine CLEAR (Clear); Blood, Urine Negative (Negative); Color,Urine YELLOW (Yellow); Glucose,Urine (UA) Negative (Negative); Ketones,Urine Negative (Negative); Leukocyte Esterase,Urine Negative (Negative); Nitrate,Urine Negative (Negative); Protein,Urine Negative (Negative); Specific Gravity, Urine 1.025 (1.005-1.030)
[2020-09-22 20:47] LABS: Bilirubin,Urine 2+ (Negative)
[2020-09-22 20:48] LABS: Bacteria,Urine Trace /lpf
[2020-09-22 20:55] VITALS: BP 130/78; PULSE 96; RESP 18; TEMP 36.9; O2SAT 96
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
== END 2020-09-22 20:56 | disposition left against medical advice (07) ==
PROVIDERS: Emergency Provider Emergency Medicine; PCP Emergency Medicine
DX: R07.81 Pleurodynia (principal); F41.8 Other specified anxiety disorders; J44.9 Chronic obstructive pulmonary disease, unspecified; K21.9 Gastro-esophageal reflux disease without esophagitis; Z79.899 Other long term (current) drug therapy; Z88.0 Allergy status to penicillin; Z88.8 Allergy status to other drugs, medicaments and biological substances
CPT/HCPCS: 71046; 81001; 93005; 99282

== ENCOUNTER 2020-09-24 10:25 | Outpatient (CLI) | payer OTHER, SELFPAY ==
[2020-09-24 11:04] LABS: PHA INR Fingerstick 3.4 (0.9-1.1)
== END 2020-09-24 11:07 | disposition home or self-care (01) ==
LOC: ACC 10:26
PROVIDERS: PCP Emergency Medicine; Visit Provider Emergency Medicine
DX: Z51.81 Encounter for therapeutic drug level monitoring (principal); Z79.01 Long term (current) use of anticoagulants
CPT/HCPCS: 85610; 99211; G0463

== ENCOUNTER → 2020-09-24 16:01 | Outpatient (CLI) | payer OTHER, SELFPAY ==
[2020-09-24 18:12] LABS: Albumin Level 4.2 g/dl (3.5-5.0); Alkaline Phosphatase 214 U/L (38-126); Bilirubin, Conjugated 2.6 mg/dL (0.0-0.3); Bilirubin,Direct 5.5 mg/dl (0.0-0.4); Bilirubin,Indirect 1.4 mg/dL (0.0-0.9); Bilirubin,Total 6.9 mg/dl (0.2-1.3); Bilirubin,Unconjugated 1.4 mg/dL (0.0-1.1); Total Protein,Serum 8.1 g/dl (6.3-8.2)
[2020-09-24 18:21] LABS: Alanine Aminotransferase 933 U/L (12-78); Aspartate Amino Transferase 1181 U/L (14-36)
== END ==
PROVIDERS: Visit Provider Emergency Medicine
DX: R74.8 Abnormal levels of other serum enzymes (principal)
CPT/HCPCS: 36415; 80076

== ENCOUNTER → 2020-09-27 14:02 | Outpatient (CLI) | payer OTHER, SELFPAY ==
[2020-09-27 14:43] LABS: Albumin Level 4.1 g/dl (3.5-5.0); Alkaline Phosphatase 207 U/L (38-126); Bilirubin, Conjugated 0.7 mg/dL (0.0-0.3); Bilirubin,Direct 3.4 mg/dl (0.0-0.4); Bilirubin,Indirect 1.1 mg/dL (0.0-0.9); Bilirubin,Total 4.5 mg/dl (0.2-1.3); Bilirubin,Unconjugated 1.1 mg/dL (0.0-1.1); Total Protein,Serum 8.1 g/dl (6.3-8.2)
[2020-09-27 14:50] LABS: Alanine Aminotransferase 745 U/L (12-78)
[2020-09-27 14:51] LABS: Aspartate Amino Transferase 706 U/L (14-36)
== END ==
PROVIDERS: Visit Provider Emergency Medicine
DX: R74.8 Abnormal levels of other serum enzymes (principal)
CPT/HCPCS: 36415; 80076

== ENCOUNTER 2020-09-28 13:06 | Outpatient (CLI) | payer OTHER, SELFPAY ==
[2020-09-28 14:50] LABS: PHA INR Fingerstick 2.6 (0.9-1.1)
== END 2020-09-28 14:56 | disposition home or self-care (01) ==
LOC: ACC 13:06
PROVIDERS: PCP Emergency Medicine; Visit Provider Emergency Medicine
DX: Z51.81 Encounter for therapeutic drug level monitoring (principal); Z79.01 Long term (current) use of anticoagulants
CPT/HCPCS: 85610; 99211; G0463

== ENCOUNTER → 2020-10-06 11:20 | Outpatient (CLI) | payer OTHER, SELFPAY ==
[2020-10-06 12:24] LABS: Alanine Aminotransferase 112 U/L (12-78); Alkaline Phosphatase 120 U/L (38-126); Aspartate Amino Transferase 56 U/L (14-36); Bilirubin,Direct 1.4 mg/dl (0.0-0.4); Bilirubin,Indirect 0.4 mg/dL (0.0-0.9); Bilirubin,Total 1.8 mg/dl (0.2-1.3); Bilirubin,Unconjugated 0.4 mg/dL (0.0-1.1); Total Protein,Serum 7.6 g/dl (6.3-8.2)
== END ==
PROVIDERS: Visit Provider Emergency Medicine
DX: R74.8 Abnormal levels of other serum enzymes (principal)
CPT/HCPCS: 36415; 80076

== ENCOUNTER → 2020-10-12 14:16 | Outpatient (CLI) | payer OTHER, SELFPAY ==
[2020-10-12 15:33] LABS: Alanine Aminotransferase 41 U/L (12-78); Albumin Level 4.1 g/dl (3.5-5.0); Alkaline Phosphatase 102 U/L (38-126); Aspartate Amino Transferase 47 U/L (14-36); Bilirubin,Direct 1.1 mg/dl (0.0-0.4); Bilirubin,Indirect 0.4 mg/dL (0.0-0.9); Bilirubin,Total 1.5 mg/dl (0.2-1.3); Bilirubin,Unconjugated 0.5 mg/dL (0.0-1.1); Total Protein,Serum 7.5 g/dl (6.3-8.2)
== END ==
PROVIDERS: Visit Provider Emergency Medicine
DX: R74.8 Abnormal levels of other serum enzymes (principal)
CPT/HCPCS: 36415; 80076

== ENCOUNTER → 2020-10-14 14:45 | Outpatient (CLI) | payer OTHER, SELFPAY | PROVIDERS: Visit Provider Nurse Practitioner | DX: R74.8 Abnormal levels of other serum enzymes (principal) ==

== ENCOUNTER 2020-10-19 10:31 | Outpatient (CLI) | payer OTHER, SELFPAY ==
[2020-10-19 14:51] LABS: PHA INR Fingerstick 3.4 (0.9-1.1)
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
== END 2020-10-19 15:09 | disposition home or self-care (01) ==
LOC: ACC 10:32
PROVIDERS: PCP Emergency Medicine; Visit Provider Emergency Medicine
DX: R74.8 Abnormal levels of other serum enzymes (principal)
CPT/HCPCS: 85610; 99211; G0463

== ENCOUNTER → 2020-10-22 12:04 | Outpatient (CLI) | payer OTHER, SELFPAY ==
[2020-10-22 12:37] LABS: Hematocrit 47.1 % (37.0-47.0); Hemoglobin 16.5 g/dL (12.2-16.2); Mean Corpuscular HGB Conc 34.9 g/dL (31.8-35.4); Mean Corpuscular Hemoglobin 29.7 pg (27.0-31.2); Mean Corpuscular Volume 85.1 fl (81-99); Platelet Count 224 K/mm3 (142-424); Red Blood Count 5.54 M/mm3 (4.20-5.40); Red Cell Distribution Width 15.5 % (11.5-17.5); White Blood Count 7.3 K/mm3 (4.8-10.8)
[2020-10-22 12:53] LABS: INR 2.63 (0.9-1.1); Prothrombin Time 26.1 seconds (9.2-12.1)
[2020-10-22 13:36] LABS: Alanine Aminotransferase 28 U/L (12-78); Albumin Level 4.8 g/dl (3.5-5.0); Albumin/Globulin Ratio 1.4 (1.1-1.8); Alkaline Phosphatase 95 U/L (38-126); Anion Gap 17.1 mEq/L (5-15); Aspartate Amino Transferase 37 U/L (14-36); Bilirubin,Direct 0.8 mg/dl (0.0-0.4); Bilirubin,Indirect 0.4 mg/dL (0.0-0.9); Bilirubin,Total 1.2 mg/dl (0.2-1.3); Bilirubin,Unconjugated 0.4 mg/dL (0.0-1.1); Blood Urea Nitrogen 13 mg/dl (7-17); Calcium 9.3 mg/dl (8.4-10.2); Carbon Dioxide 24 mmol/L (22.0-30.0); Chloride 105 mmol/L (98-107); Estimated Glomerular Filt Rate 59 ml/min (>60); GFR (African American) 71 ML/MIN (>60); Globulin 3.4 g/dL (1.3-3.2); Glucose 131 mg/dl (74-100); Potassium 4.1 mmoL/L (3.5-5.1); Sodium 142 mmol/L (136-145); Total Protein,Serum 8.2 g/dl (6.3-8.2)
== END ==
PROVIDERS: Visit Provider Nurse Practitioner
DX: R10.9 Unspecified abdominal pain (principal); R89.4 Abnormal immunological findings in specimens from other organs, systems and tissues; Z51.81 Encounter for therapeutic drug level monitoring; Z79.01 Long term (current) use of anticoagulants
CPT/HCPCS: 36415; 80053; 80076; 85014; 85018; 85048; 85049; 85610

== ENCOUNTER 2020-11-11 13:40 | Outpatient (CLI) | payer OTHER, SELFPAY ==
[2020-11-11 15:08] LABS: PHA INR Fingerstick 3.6 (0.9-1.1)
[2020-11-11 15:31] LABS: Alanine Aminotransferase 26 U/L (12-78); Albumin Level 4.2 g/dl (3.5-5.0); Alkaline Phosphatase 93 U/L (38-126); Aspartate Amino Transferase 33 U/L (14-36); Bilirubin,Direct 0.5 mg/dl (0.0-0.4); Bilirubin,Indirect 0.1 mg/dL (0.0-0.9); Bilirubin,Total 0.6 mg/dl (0.2-1.3); Bilirubin,Unconjugated 0.1 mg/dL (0.0-1.1); Total Protein,Serum 7.2 g/dl (6.3-8.2)
== END 2020-11-11 15:14 | disposition home or self-care (01) ==
LOC: ACC 13:41
PROVIDERS: PCP Emergency Medicine; Visit Provider Emergency Medicine
DX: R74.8 Abnormal levels of other serum enzymes (principal); Z51.81 Encounter for therapeutic drug level monitoring; Z79.01 Long term (current) use of anticoagulants
CPT/HCPCS: 36415; 80076; 85610; 99211; G0463

== ENCOUNTER 2020-11-24 14:53 | Outpatient (CLI) | payer OTHER, SELFPAY ==
[2020-11-24 15:46] LABS: PHA INR Fingerstick 3.1 (0.9-1.1)
== END 2020-11-24 16:04 | disposition home or self-care (01) ==
LOC: ACC 14:54
PROVIDERS: PCP Emergency Medicine; Visit Provider Emergency Medicine
DX: I82.409 Acute embolism and thrombosis of unspecified deep veins of unspecified lower extremity (principal); Z51.81 Encounter for therapeutic drug level monitoring; Z79.01 Long term (current) use of anticoagulants
CPT/HCPCS: 85610; 99211; G0463

== ENCOUNTER 2020-11-30 14:57 | Outpatient (CLI) | payer OTHER, SELFPAY ==
[2020-11-30 15:24] LABS: PHA INR Fingerstick 2.2 (0.9-1.1)
== END 2020-11-30 15:27 | disposition home or self-care (01) ==
LOC: ACC 14:57
PROVIDERS: PCP Emergency Medicine; Visit Provider Emergency Medicine
DX: Z51.81 Encounter for therapeutic drug level monitoring (principal); Z79.01 Long term (current) use of anticoagulants
CPT/HCPCS: 85610; 99211; G0463

== ENCOUNTER → 2020-12-30 14:01 | Outpatient (CLI) | payer OTHER, SELFPAY ==
[2020-12-30 15:03] LABS: Adenovirus,PCR Not Detected (NotDetected); Bordetella Pertussis Not Detected (NotDetected); Chlamydophila Pneumoniae, PCR Not Detected (NotDetected); Coronavirus 19, PCR Not Detected (NotDetected); Coronavirus 229E Not Detected (NotDetected); Coronavirus NL63 Not Detected (NotDetected); Coronavirus OC43 Not Detected (NotDetected); Coronovirus HKU1,PCR Not Detected (NotDetected); Human Metapneumovirus Not Detected (NotDetected); Influenza A, PCR Not Detected (NotDetected); Influenza AH1, 2009 Not Detected (NotDetected); Influenza AH1, PCR Not Detected (NotDetected); Influenza AH3,PCR Not Detected (NotDetected); Influenza B, PCR Not Detected (NotDetected); Mycoplasma Pneumoniae, PCR Not Detected (NotDetected); Parainfluenza 1, PCR Not Detected (NotDetected); Parainfluenza 2, PCR Not Detected (NotDetected); Parainfluenza 3, PCR Not Detected (NotDetected); Parainfluenza 4, PCR Not Detected (NotDetected); Respiratory Syncytial Virus Not Detected (NotDetected); Rhinovirus/Enterovirus Not Detected (NotDetected)
== END ==
PROVIDERS: PCP Emergency Medicine; Visit Provider Emergency Medicine
DX: Z20.822 Contact with and (suspected) exposure to COVID-19 (principal)
CPT/HCPCS: 87581; 87633; 87798

== ENCOUNTER → 2021-01-14 10:57 | Outpatient (CLI) | payer OTHER, SELFPAY ==
[2021-01-14 11:49] LABS: INR 1.72 (0.9-1.1); Prothrombin Time 17.8 seconds (9.2-12.1)
[2021-01-14 13:45] LABS: Alanine Aminotransferase 40 U/L (12-78); Albumin Level 4.3 g/dl (3.5-5.0); Alkaline Phosphatase 80 U/L (38-126); Aspartate Amino Transferase 43 U/L (14-36); Bilirubin,Direct 0.4 mg/dl (0.0-0.4); Bilirubin,Total 0.4 mg/dl (0.2-1.3); Total Protein,Serum 7.7 g/dl (6.3-8.2)
== END ==
PROVIDERS: Visit Provider Emergency Medicine
DX: Z51.81 Encounter for therapeutic drug level monitoring (principal); Z79.01 Long term (current) use of anticoagulants; R74.8 Abnormal levels of other serum enzymes
CPT/HCPCS: 36415; 80076; 85610

== ENCOUNTER 2021-02-21 13:58 | Outpatient (RCR) | payer OTHER, SELFPAY ==
[2021-02-21 15:10] LABS: PHA INR Fingerstick 2.8 (0.9-1.1)
== END 2021-02-21 14:53 | disposition home or self-care (01) ==
LOC: PT 13:58
PROVIDERS: PCP Emergency Medicine; Visit Provider Emergency Medicine
DX: G62.9 Polyneuropathy, unspecified; R26.9 Unspecified abnormalities of gait and mobility; Z51.81 Encounter for therapeutic drug level monitoring; Z79.01 Long term (current) use of anticoagulants
CPT/HCPCS: 85610; 97542; 99211; G0463

== ENCOUNTER → 2021-03-22 13:45 | Outpatient (CLI) | payer OTHER, SELFPAY | PROVIDERS: PCP Emergency Medicine; Visit Provider Nurse Practitioner | DX: Z20.822 Contact with and (suspected) exposure to COVID-19 (principal) | CPT/HCPCS: C9803; U0003; U0005 ==

== ENCOUNTER 2021-04-05 14:10 | Outpatient (CLI) | payer OTHER, SELFPAY ==
[2021-04-05 15:07] LABS: PHA INR Fingerstick 1.9 (0.9-1.1)
== END 2021-04-05 15:10 | disposition home or self-care (01) ==
LOC: ACC 14:10
PROVIDERS: PCP Emergency Medicine; Visit Provider Emergency Medicine
DX: Z51.81 Encounter for therapeutic drug level monitoring (principal); Z79.01 Long term (current) use of anticoagulants
CPT/HCPCS: 85610; 99211; G0463

== ENCOUNTER → 2021-05-12 14:54 | Outpatient (CLI) | payer OTHER, SELFPAY ==
[2021-05-12 15:59] LABS: INR 1.76 (0.9-1.1); Prothrombin Time 19.1 seconds (10.1-12.5)
== END ==
PROVIDERS: PCP Emergency Medicine; Visit Provider Nurse Practitioner
DX: Z20.822 Contact with and (suspected) exposure to COVID-19 (principal); R79.1 Abnormal coagulation profile
CPT/HCPCS: 36415; 85610; C9803; U0003; U0005

== ENCOUNTER → 2021-05-17 12:25 | Outpatient (CLI) | payer OTHER, SELFPAY | PROVIDERS: PCP Emergency Medicine; Visit Provider Nurse Practitioner | DX: Z20.822 Contact with and (suspected) exposure to COVID-19 (principal) | CPT/HCPCS: C9803; U0003; U0005 ==

== ENCOUNTER → 2021-07-01 14:56 | Outpatient (CLI) | payer OTHER, SELFPAY | PROVIDERS: PCP Emergency Medicine; Visit Provider Nurse Practitioner | DX: Z20.822 Contact with and (suspected) exposure to COVID-19 (principal) | CPT/HCPCS: C9803; U0003; U0005 ==

== ENCOUNTER 2021-08-05 13:29 | Outpatient (CLI) | payer OTHER, SELFPAY ==
[2021-08-05 14:53] LABS: PHA INR Fingerstick 2.2 (0.9-1.1)
== END 2021-08-05 15:03 | disposition home or self-care (01) ==
LOC: LAB 13:31
PROVIDERS: PCP Emergency Medicine; Visit Provider Emergency Medicine
DX: R74.8 Abnormal levels of other serum enzymes (principal); R10.9 Unspecified abdominal pain; Z51.81 Encounter for therapeutic drug level monitoring; Z79.01 Long term (current) use of anticoagulants; Z11.52 Encounter for screening for COVID-19
CPT/HCPCS: 85610; 99211; C9803; G0463; U0003; U0005

== ENCOUNTER 2021-12-02 15:00 | Outpatient (CLI) | payer OTHER, SELFPAY ==
[2021-12-02 15:50] LABS: PHA INR Fingerstick 1.9 (0.9-1.1)
== END 2021-12-02 16:02 | disposition home or self-care (01) ==
LOC: LAB 15:02
PROVIDERS: PCP Emergency Medicine; Visit Provider Emergency Medicine
DX: Z01.818 Encounter for other preprocedural examination (principal); Z51.81 Encounter for therapeutic drug level monitoring; Z79.01 Long term (current) use of anticoagulants
CPT/HCPCS: 85610; 99211; G0463

== ENCOUNTER → 2021-12-05 16:29 | Outpatient (CLI) | payer OTHER, SELFPAY ==
[2021-12-05 19:17] LABS: Alanine Aminotransferase 55 U/L (12-78); Albumin Level 4.3 g/dl (3.5-5.0); Albumin/Globulin Ratio 1.4 (1.1-1.8); Alkaline Phosphatase 124 U/L (38-126); Anion Gap 12.1 mEq/L (5-15); Aspartate Amino Transferase 66 U/L (14-36); Bilirubin,Total 0.3 mg/dl (0.2-1.3); Blood Urea Nitrogen 12 mg/dl (7-17); Calcium 9.3 mg/dl (8.4-10.2); Carbon Dioxide 26 mmol/L (22.0-30.0); Chloride 107 mmol/L (98-107); Estimated Glomerular Filt Rate 58 ml/min (>60); GFR (African American) 71 ML/MIN (>60); Globulin 3.1 g/dL (1.3-3.2); Glucose 117 mg/dl (74-100); Potassium 4.1 mmoL/L (3.5-5.1); Sodium 141 mmol/L (136-145); Total Protein,Serum 7.4 g/dl (6.3-8.2)
== END ==
PROVIDERS: PCP Emergency Medicine; Visit Provider Emergency Medicine
DX: G62.9 Polyneuropathy, unspecified (principal); M54.12 Radiculopathy, cervical region; F41.9 Anxiety disorder, unspecified; Z20.822 Contact with and (suspected) exposure to COVID-19
CPT/HCPCS: 80053; C9803; U0003; U0005

== ENCOUNTER → 2021-12-20 16:13 | Outpatient (CLI) | payer OTHER, SELFPAY | PROVIDERS: PCP Emergency Medicine; Visit Provider Emergency Medicine | DX: Z20.822 Contact with and (suspected) exposure to COVID-19 (principal) | CPT/HCPCS: C9803; U0003; U0005 ==

== ENCOUNTER 2021-12-29 13:06 | Outpatient (CLI) | payer OTHER, SELFPAY ==
[2021-12-29 13:32] LABS: PHA INR Fingerstick 2.3 (0.9-1.1)
== END 2021-12-29 13:34 | disposition home or self-care (01) ==
LOC: ACC 13:08
PROVIDERS: PCP Emergency Medicine; Visit Provider Emergency Medicine
DX: Z51.81 Encounter for therapeutic drug level monitoring (principal); Z79.01 Long term (current) use of anticoagulants; R74.8 Abnormal levels of other serum enzymes
CPT/HCPCS: 85610; 99211; G0463

== ENCOUNTER 2022-03-03 13:53 | Outpatient (CLI) | payer OTHER, SELFPAY ==
[2022-03-03 15:55] LABS: PHA INR Fingerstick 2.5 (0.9-1.1)
--- NOTE | 2022-09-07 12:06 | HMH.PHAINT1 ---
Pharmacy Intervention Comments: PATIENT HAS BEEN CALLED SEVERAL TIMES AND SCHEDULED FOR FOLLOW UP ACC APPOINTMENTS. HAS NOT BEEN SEEN SINCE 03/03/22.
== END 2022-03-03 16:11 ==
PROVIDERS: PCP Emergency Medicine; Visit Provider Emergency Medicine
DX: Z51.81 Encounter for therapeutic drug level monitoring (principal); Z79.01 Long term (current) use of anticoagulants; R94.5 Abnormal results of liver function studies
CPT/HCPCS: 85610; 99211; G0463

== ENCOUNTER 2022-05-07 16:40 | Emergency (ER) | payer OTHER, SELFPAY ==
[2022-05-07 16:42] VITALS: BP 150/110; PULSE 99; RESP 18; TEMP 36.6; O2SAT 98; BMI 25.2
[2022-05-07 16:50] VITALS: BP 156/110; PULSE 104; RESP 18; O2SAT 100
[2022-05-07 17:00] VITALS: BP 135/98; PULSE 96; RESP 18; O2SAT 99
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
--- NOTE | 2022-05-07 18:02 | PC.NURSE ---
pt gone to rad
[2022-05-07 19:29] VITALS: BP 137/88; PULSE 89; RESP 20; TEMP 36.8; O2SAT 98
--- NOTE | 2022-05-07 19:30 | PC.NURSE ---
Nurse at bedside with Dr Ames for exam
== END 2022-05-07 19:40 | disposition home or self-care (01) ==
PROVIDERS: Emergency Provider Emergency Medicine; PCP Emergency Medicine
DX: M54.50 Low back pain, unspecified (principal); M54.2 Cervicalgia; M51.37 Other intervertebral disc degeneration, lumbosacral region; M25.521 Pain in right elbow; R07.9 Chest pain, unspecified; R51.9 Headache, unspecified; R05.9 Cough, unspecified; R11.2 Nausea with vomiting, unspecified; D68.51 Activated protein C resistance; K64.9 Unspecified hemorrhoids; F17.210 Nicotine dependence, cigarettes, uncomplicated; Z79.51 Long term (current) use of inhaled steroids; Z79.01 Long term (current) use of anticoagulants; Z79.899 Other long term (current) drug therapy; Z88.0 Allergy status to penicillin; Z88.6 Allergy status to analgesic agent; Z88.8 Allergy status to other drugs, medicaments and biological substances; Z89.511 Acquired absence of right leg below knee; Y04.2XXA Assault by strike against or bumped into by another person, initial encounter; Y92.009 Unspecified place in unspecified non-institutional (private) residence as the place of occurrence of the external cause
CPT/HCPCS: 72070; 72100; 73080; 99285

== ENCOUNTER → 2022-09-21 10:15 | Outpatient (CLI) | payer OTHER, SELFPAY ==
[2022-09-21 16:32] LABS: Amphetamine/Metha Screen,Urine Negative ng/ml (<1000)
[2022-09-21 16:34] LABS: Barbiturates Screen,Urine Negative ng/ml (<200)
[2022-09-21 16:35] LABS: Benzodiazepines Screen,Urine Positive ng/ml (<200)
[2022-09-21 16:36] LABS: Cannabinoid Screen,Urine Positive ng/ml (<50); Cocaine Screen,Urine Negative ng/ml (<300)
[2022-09-21 16:37] LABS: Methadone Screen,Urine Negative ng/ml (<300); Opiate Screen,Urine Negative ng/ml (<300)
[2022-09-21 16:40] LABS: Phencyclidine Screen,Urine Negative ng/ml (<25)
== END ==
PROVIDERS: PCP Nurse Practitioner Family; Visit Provider Nurse Practitioner Family
DX: Z79.899 Other long term (current) drug therapy (principal)
CPT/HCPCS: 80305

== ENCOUNTER 2022-09-28 17:59 | Emergency (ER) | payer OTHER, SELFPAY ==
[2022-09-28 17:25] VITALS: BP 144/103; PULSE 103; RESP 18; TEMP 37.1; O2SAT 98; BMI 23.1
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
--- NOTE | 2022-09-28 17:28 | HMH.EDGENADL ---
Discharge Plan Disposition Patient Disposition: Home, Self-Care Chief Complaint: PAIN Prescriptions Prescriptions: No Action albuterol sulfate 2.5 mg /3 mL (0.083 %) solution for nebulization See Rx Instructions .ROUTE .COMPLEX Qty: 180 2RF Dose Instruction: INHALE THE CONTENTS OF 1 VIAL VIA NEBULIZER EVERY 6 HOURS Rx Instructions: INHALE THE CONTENTS OF 1 VIAL VIA NEBULIZER EVERY 6 HOURS lactulose 20 gram/30 mL solution 20 g PO BID Qty: 1892 2RF mupirocin 2 % ointment 1 applic TOPICAL BID Qty: 15 0RF pantoprazole 40 mg tablet,delayed release (DR/EC) See Rx Instructions .ROUTE .COMPLEX Qty: 90 3RF Dose Instruction: TAKE 1 TABLET BY MOUTH EVERY DAY Rx Instructions: TAKE 1 TABLET BY MOUTH EVERY DAY cyclobenzaprine 10 mg tablet 10 mg PO TID PRN (Reason: muscle spasm) Qty: 60 0RF famotidine [Zantac-360 (famotidine)] 20 mg tablet 20 mg PO DAILY Qty: 90 3RF alcohol swabs Pads, Medicated 1 pad TP DIRECTED Qty: 100 0RF lidocaine HCl 3 % cream See Rx Instructions .ROUTE .COMPLEX Qty: 85 0RF Dose Instruction: APPLY TOPICALLY TO THE AFFECTED AREA(S) THREE TIMES DAILY NEEDED FOR PAIN -- FOR EXTERNAL USE ONLY-- Rx Instructions: APPLY TOPICALLY TO THE AFFECTED AREA(S) THREE TIMES DAILY NEEDED FOR PAIN -- FOR EXTERNAL USE ONLY-- montelukast 10 mg tablet See Rx Instructions .ROUTE .COMPLEX Qty: 30 2RF Dose Instruction: TAKE ONE TABLET BY MOUTH EVERY DAY Rx Instructions: TAKE ONE TABLET BY MOUTH EVERY DAY warfarin 5 mg tablet See Rx Instructions .ROUTE .COMPLEX Qty: 32 5RF Dose Instruction: TAKE ONE TABLET BY MOUTH EVERY DAY EXCEPT TAKE 1 AND 1/2 TABLET ON DIRECTED Rx Instructions: TAKE ONE TABLET BY MOUTH EVERY DAY EXCEPT TAKE 1 AND 1/2 TABLET ON DIRECTED Dolores Pacheco 100-62.5-25 mcg blister with device See Rx Instructions .ROUTE .COMPLEX Qty: 60 5RF Dose Instruction: INHALE 1 PUFF BY MOUTH EVERY DAY Rx Instructions: INHALE 1 PUFF BY MOUTH EVERY DAY ondansetron 4 mg tablet,disintegrating 4 mg PO Q8H PRN (Reason: nausea and vomiting) Qty: 20 2RF albuterol sulfate 90 mcg/actuation HFA aerosol inhaler See Rx Instructions .ROUTE .COMPLEX Qty: 8.5 5RF Dose Instruction: INHALE TWO PUFFS BY MOUTH EVERY 8 HOURS Rx Instructions: INHALE TWO PUFFS BY MOUTH EVERY 8 HOURS clonazepam 0.5 mg tablet 0.5 mg PO BID Qty: 60 0RF dextroamphetamine-amphetamine [Adderall] 30 mg tablet 30 mg PO BID Qty: 60 0RF Rx Instructions: administer doses at least 4-6 hours apart gabapentin 800 mg tablet 800 mg PO QID Qty: 120 0RF Activity Restrictions/Add. Instructions Additional Instructions/Restrictions: Return for worsening pain vomiting or any other concerns within the next 8 hours otherwise follow-up with your primary care physician within the next few days Clinical Impressions Clinical Impression: Contusion of lower back and pelvis, initial encounter Discharge ED Provider: Michael Coates General Adult HPI General Chief complaint: PAIN Stated complaint: fall Time Seen by Provider: 09/28/22 16:00 History of Present Illness HPI narrative: 51-year-old female history of smoking and COPD asthma presents after fall from roller chair. She was at the local grocery store and the mechanical chair and over. She is having pain in her sacral area and lower back and groin area. She has no bleeding no new numbness weakness or tingling arms or legs. No head injury or loss of consciousness. No blood thinners. Related Data Previous Rx's Medication Instructions Recorded albuterol sulfate 2.5 mg/3 mL See Rx Instructions .Route 05/16/21 (0.083 %) solution for nebulization .COMPLEX #180 mL lactulose 20 gram/30 mL oral 20 g (30 mL) PO BID #1,892 mL 05/16/21 solution mupirocin 2 % topical ointment 1 applic topical BID #15 grams 05/16/21 pantopra
[2022-09-28 18:05] VITALS: BP 126/85; PULSE 75; RESP 18; O2SAT 98
[2022-09-28 18:35] LABS: Basophils # 0.1 K/mm3 (0-0.2); Basophils % 0.7 % (0.1-2.0); Eosinophils # 0.2 K/mm3 (0.0-0.4); Eosinophils % 2.3 % (0.1-12.0); Hematocrit 45.9 % (37.0-47.0); Hemoglobin 15.7 g/dL (12.2-16.2); Lymphocytes # 2.9 K/mm3 (0.7-4.5); Lymphocytes % 40.2 % (10-50); Mean Corpuscular HGB Conc 34.3 g/dL (31.8-35.4); Mean Corpuscular Hemoglobin 28.9 pg (27.0-31.2); Mean Corpuscular Volume 84.4 fl (81-99); Mean Platelet Volume 8.3 fl (7.4-10.4); Monocytes # 0.4 K/mm3 (0.1-1.0); Monocytes % 5.9 % (1.7-9.3); Neutrophils # 3.7 K/mm3 (1.8-7.8); Neutrophils % 50.8 % (37.0-80.0); Platelet Count 190 K/mm3 (142-424); Red Blood Count 5.44 M/mm3 (4.20-5.40); Red Cell Distribution Width 13.4 % (11.5-17.5); White Blood Count 7.3 K/mm3 (4.8-10.8)
[2022-09-28 18:36] LABS: Chloride 102 mmol/L (98-107); Potassium 3.6 mmoL/L (3.5-5.1); Sodium 143 mmol/L (136-145)
[2022-09-28 18:39] LABS: Alanine Aminotransferase 37 U/L (12-78); Albumin Level 4.3 g/dl (3.5-5.0); Albumin/Globulin Ratio 1.3 (1.1-1.8); Alkaline Phosphatase 97 U/L (38-126); Anion Gap 14.6 mEq/L (5-15); Aspartate Amino Transferase 45 U/L (14-36); Bilirubin,Total 0.5 mg/dl (0.2-1.3); Blood Urea Nitrogen 14 mg/dl (7-17); Calcium 9.2 mg/dl (8.4-10.2); Carbon Dioxide 30 mmol/L (22.0-30.0); Creatinine Clearance Estimated 83 mL/min (50-200); Estimated Glomerular Filt Rate 58 ml/min (>60); GFR (African American) 71 ML/MIN (>60); Globulin 3.2 g/dL (1.3-3.2); Glucose 118 mg/dl (74-100); Lipase 62 U/L (23-300); Total Protein,Serum 7.5 g/dl (6.3-8.2)
--- NOTE | 2022-09-28 18:42 | PC.NURSE ---
Pt from CT. Pt updated on plan of care. Warm blanket provided. Lights turned down to promote comfort measures.
[2022-09-28 19:07] VITALS: BP 126/85; PULSE 75; RESP 18; TEMP 37.1; O2SAT 98
--- NOTE | 2022-10-02 12:46 | HMH.PHAINT1 ---
Pharmacy Intervention Comments: CONTACTED MD OFFICE ABOUT LACK OF COUMADIN CLINIC FOLLOW UP BY PATIENT. STOPPING WARFARIN REFILLS WITH CLINIC PHARMACY AT THIS TIME IN AGREEMENT WITH Liban ORTIZ APRN. HAVE TRIED CONTACTING PATIENT MULTIPLE TIMES VIA PHONE WITH NO ANSWER.
--- NOTE | 2022-10-02 12:50 | HMH.PHAINT1 ---
Pharmacy Intervention Comments: SPOKE WITH OFFICE ABOUT PATIENT NOT FOLLOWING UP WITH COUMADIN CLINIC. HAVE NOT BEEN ABLE TO REACH PATIENT AFTER MULTIPLE PHONE CALLS TO SCHEDULE FOLLOW UP. CONTACTED Liban ORTIZ APRN IN OFFICE ABOUT THIS. WE ARE CURRENTLY STOPPING REFILLS ON WARFARIN WITH CLINIC PHARMACY. PHARMACY WAS NOTIFIED TODAY.
== END 2022-09-28 19:25 | disposition home or self-care (01) ==
PROVIDERS: Emergency Provider Emergency Medicine; PCP Emergency Medicine
DX: S30.0XXA Contusion of lower back and pelvis, initial encounter (principal); F17.210 Nicotine dependence, cigarettes, uncomplicated; J44.9 Chronic obstructive pulmonary disease, unspecified; V00.831A Fall from motorized mobility scooter, initial encounter
CPT/HCPCS: 72128; 72131; 74176; 80053; 83690; 85025; 96361; 96374; 96375; 99285; J2405

== ENCOUNTER 2022-11-24 12:58 | Emergency (ER) | payer OTHER, SELFPAY ==
[2022-11-24] VITALS (7 sets, daily range): BP systolic 116–162; BP diastolic 78–105; PULSE 66–91; RESP 16–18; TEMP 36.8; O2SAT 96–99; BMI 21.1
--- NOTE | 2022-11-24 12:51 | ECG_ITS ---
APPROVED REPORT Exam: Resting ECG HR:89 bpm ECG Measurements Heart Rate 89 AXES VT 127 P 64 QRSd 83 QRS 46 QT 370 T 52 QTc 417 Conclusion SINUS RHYTHM Left atrial abnormality BORDERLINE ECG UNCONFIRMED REPORT Electronically signed by : Isac Pate MD 11/25/2022 09:55:20
--- NOTE | 2022-11-24 13:15 | XR_ITS ---
FINAL REPORT CLINICAL HISTORY: Chest pain COMPARISON: 09/22/2020 FINDINGS: SINGLE VIEW CHEST The heart size is normal. The mediastinum is normal. There is a small right pleural effusion or pleural thickening. There is no pneumothorax. IMPRESSION: Small right pleural effusion or pleural thickening. Reviewed, Interpreted and Dictated by Tom Benítez III, MD Transcribed by Cyndee Swann Authenticated and [facility]
--- NOTE | 2022-11-24 13:31 | [facility].EDCP ---
Discharge Plan Disposition Patient Disposition: Home, Self-Care Chief Complaint: Chest Pain Prescriptions Prescriptions: No Action albuterol sulfate 2.5 mg /3 mL (0.083 %) solution for nebulization See Rx Instructions .ROUTE .COMPLEX Qty: 180 2RF Dose Instruction: INHALE THE CONTENTS OF 1 VIAL VIA NEBULIZER EVERY 6 HOURS Rx Instructions: INHALE THE CONTENTS OF 1 VIAL VIA NEBULIZER EVERY 6 HOURS lactulose 20 gram/30 mL solution 20 g PO BID Qty: 1892 2RF mupirocin 2 % ointment 1 applic TOPICAL BID Qty: 15 0RF pantoprazole 40 mg tablet,delayed release (DR/EC) See Rx Instructions .ROUTE .COMPLEX Qty: 90 3RF Dose Instruction: TAKE 1 TABLET BY MOUTH EVERY DAY Rx Instructions: TAKE 1 TABLET BY MOUTH EVERY DAY cyclobenzaprine 10 mg tablet 10 mg PO TID PRN (Reason: muscle spasm) Qty: 60 0RF famotidine [Zantac-360 (famotidine)] 20 mg tablet 20 mg PO DAILY Qty: 90 3RF alcohol swabs Pads, Medicated 1 pad TP DIRECTED Qty: 100 0RF lidocaine HCl 3 % cream See Rx Instructions .ROUTE .COMPLEX Qty: 85 0RF Dose Instruction: APPLY TOPICALLY TO THE AFFECTED AREA(S) THREE TIMES DAILY NEEDED FOR PAIN -- FOR EXTERNAL USE ONLY-- Rx Instructions: APPLY TOPICALLY TO THE AFFECTED AREA(S) THREE TIMES DAILY NEEDED FOR PAIN -- FOR EXTERNAL USE ONLY-- montelukast 10 mg tablet See Rx Instructions .ROUTE .COMPLEX Qty: 30 2RF Dose Instruction: TAKE ONE TABLET BY MOUTH EVERY DAY Rx Instructions: TAKE ONE TABLET BY MOUTH EVERY DAY warfarin 5 mg tablet See Rx Instructions .ROUTE .COMPLEX Qty: 32 5RF Dose Instruction: TAKE ONE TABLET BY MOUTH EVERY DAY EXCEPT TAKE 1 AND 1/2 TABLET ON DIRECTED Rx Instructions: TAKE ONE TABLET BY MOUTH EVERY DAY EXCEPT TAKE 1 AND 1/2 TABLET ON DIRECTED Dolores Ellipta 100-62.5-25 mcg blister with device See Rx Instructions .ROUTE .COMPLEX Qty: 60 5RF Dose Instruction: INHALE 1 PUFF BY MOUTH EVERY DAY Rx Instructions: INHALE 1 PUFF BY MOUTH EVERY DAY ondansetron 4 mg tablet,disintegrating 4 mg PO Q8H PRN (Reason: nausea and vomiting) Qty: 20 2RF albuterol sulfate 90 mcg/actuation HFA aerosol inhaler See Rx Instructions .ROUTE .COMPLEX Qty: 8.5 5RF Dose Instruction: INHALE TWO PUFFS BY MOUTH EVERY 8 HOURS Rx Instructions: INHALE TWO PUFFS BY MOUTH EVERY 8 HOURS clonazepam 0.5 mg tablet 0.5 mg PO BID Qty: 60 0RF dextroamphetamine-amphetamine [Adderall] 30 mg tablet 30 mg PO BID Qty: 60 0RF Rx Instructions: administer doses at least 4-6 hours apart gabapentin 800 mg tablet 800 mg PO QID Qty: 120 0RF lidocaine 5 % adhesive patch,medicated 1 patch topical DAILY Qty: 15 0RF Rx Instructions: leave on most painful area for up to 12 hrs hydroxyzine pamoate [Vistaril] 25 mg capsule 25 mg PO TID PRN (Reason: Itching) Qty: 15 0RF oxycodone 5 mg capsule 5 mg PO Q8H PRN (Reason: pain) Qty: 6 0RF Referrals Follow up/Referrals: Provider,Referral, MD [Primary Care Provider] - See instructions Clinical Impressions Clinical Impression: Atypical chest pain Discharge ED Provider: Donato Tolbert Chest Pain HPI General Chief Complaint: Chest Pain Stated Complaint: chest pain Time Seen by Provider: 11/24/22 13:12 Mode of Arrival: Ambulatory Source of Information: Patient Limitations: No Limitations Description of Symptoms (Recalled from ER Triage Doc. by RN): Presents to ED with complaints of midsternal chest pain and lung burning x 2 days. Patient reports it has worsened today when laying down. Patient states she has been under a lot of stress. Denies cardiac hx. 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 History of Present Illness HPI narrative: 52-year-old white female presents with chest pain. Patient has a history of substance abuse she takes Suboxone benzodiazep
[2022-11-24 13:35] LABS: Basophils % 0.6 % (0.1-2.0); Eosinophils # 0.1 K/mm3 (0.0-0.4); Eosinophils % 2.2 % (0.1-12.0); Hematocrit 48.2 % (37.0-47.0); Lymphocytes # 1.5 K/mm3 (0.7-4.5); Lymphocytes % 25.4 % (10-50); Mean Corpuscular HGB Conc 33.2 g/dL (31.8-35.4); Mean Corpuscular Hemoglobin 28.2 pg (27.0-31.2); Mean Platelet Volume 7.8 fl (7.4-10.4); Monocytes # 0.3 K/mm3 (0.1-1.0); Monocytes % 5.5 % (1.7-9.3); Neutrophils # 3.9 K/mm3 (1.8-7.8); Neutrophils % 66.3 % (37.0-80.0); Platelet Count 190 K/mm3 (142-424); Red Blood Count 5.67 M/mm3 (4.20-5.40); Red Cell Distribution Width 13.5 % (11.5-17.5); White Blood Count 5.8 K/mm3 (4.8-10.8)
[2022-11-24 13:39] LABS: Alanine Aminotransferase 43 U/L (12-78); Albumin Level 4.6 g/dl (3.5-5.0); Albumin/Globulin Ratio 1.3 (1.1-1.8); Alkaline Phosphatase 108 U/L (38-126); Anion Gap 13.7 mEq/L (5-15); Aspartate Amino Transferase 52 U/L (14-36); Bilirubin,Total 0.4 mg/dl (0.2-1.3); Blood Urea Nitrogen 10 mg/dl (7-17); Calcium 9.1 mg/dl (8.4-10.2); Carbon Dioxide 27 mmol/L (22.0-30.0); Chloride 105 mmol/L (98-107); Creatinine Clearance Estimated 84 mL/min (50-200); Estimated Glomerular Filt Rate 66 ml/min (>60); GFR (African American) 80 ML/MIN (>60); Globulin 3.5 g/dL (1.3-3.2); Glucose 154 mg/dl (74-100); Potassium 3.7 mmoL/L (3.5-5.1); Sodium 142 mmol/L (136-145); Total Protein,Serum 8.1 g/dl (6.3-8.2)
[2022-11-24 13:51] LABS: Troponin I < 0.01 ng/ml (0.00-0.034)
--- NOTE | 2022-11-24 14:04 | PC.NURSE ---
22g PIV removed from left wrist d/t infiltration. Difficult to flush, unable to get blood return.
[2022-11-24 14:28] LABS: Microscopic, Urine URINE MICROSCOPIC (MICROSCOPIC)
[2022-11-24 14:45] LABS: Appearance,Urine CLEAR (Clear); Blood, Urine 1+ (Negative); Color,Urine YELLOW (Yellow); Glucose,Urine (UA) Negative (Negative); Ketones,Urine Negative (Negative); Leukocyte Esterase,Urine Negative (Negative); Nitrate,Urine Negative (Negative); PH,Urine 5.5 (5.0-8.5); Protein,Urine TRACE (Negative); Specific Gravity, Urine >= 1.030 (1.005-1.030); Urobilinogen,Urine 0.2 EU/dl (0.2)
[2022-11-24 15:02] LABS: Bacteria,Urine 2+ /lpf; Bilirubin,Urine 1+ (Negative)
[2022-11-24 15:03] LABS: WBC,Urine Occasional #/hpf (0-3)
[2022-11-24 15:10] LABS: Amphetamine/Metha Screen,Urine Negative ng/ml (<1000); Benzodiazepines Screen,Urine Positive ng/ml (<200)
[2022-11-24 15:11] LABS: Barbiturates Screen,Urine Negative ng/ml (<200)
[2022-11-24 15:12] LABS: Cannabinoid Screen,Urine Positive ng/ml (<50)
[2022-11-24 15:14] LABS: Opiate Screen,Urine Negative ng/ml (<300); Phencyclidine Screen,Urine Negative ng/ml (<25)
[2022-11-24 15:17] LABS: Cocaine Screen,Urine Negative ng/ml (<300); Methadone Screen,Urine Negative ng/ml (<300)
--- NOTE | 2022-11-24 15:37 | PC.NURSE ---
Rounded on patient; requesting to speak with doctor. notified
== END 2022-11-24 16:08 | disposition home or self-care (01) ==
PROVIDERS: Emergency Provider Emergency Medicine
DX: R07.89 Other chest pain (principal); F41.9 Anxiety disorder, unspecified; J44.9 Chronic obstructive pulmonary disease, unspecified; K21.9 Gastro-esophageal reflux disease without esophagitis
CPT/HCPCS: 71045; 80053; 80305; 81001; 84484; 85025; 87086; 87088; 87186; 93005; 99285